=== PATIENT | male | born 1970 | race Caucasian/White ===

== ENCOUNTER 2025-04-05 08:40 | Outpatient (AMB) | payer OTHER, SELFPAY ==
--- NOTE | 2025-04-05 08:49 | MHC.OFFVIS ---
Vital Signs 04/05/25 09:00 Height 5 ft 10 in Weight 228 lb BMI 32.7 BP 115/66 Blood Pressure Location Lt brachial Position Sitting Pulse 86 Pulse Oximetry (%) 96 Oxygen Delivery Method Room Air Intake Visit Reasons: IBD Intake Note: Patient new consult for IBD. Patient cc: soft stool/diarrhea and the are frequent. Assisted Sales Representative Required: No Accompanied by: Self / Same As Patient Allergies shellfish derived (shellfish) Allergy (Intermediate, Verified 04/05/25 08:49) Unknown Medication List - Last Reconciled 04/05/25 by Oneyda Henriquez CNP albuterol sulfate 90 mcg/actuation 2 puffs inhalation Q4H PRN bisacodyl 5 mg PO ONCE glipizide ER mg PO multivitamin 1 tab PO QAM polyethylene glycol 3350 (Miralax) 238 grams PO ONCE sildenafil (Viagra) 50 mg PO DAILY PRN tamsulosin 0.4 mg PO DAILY HPI HPI IBD: Details: Patient is a 54-year-old male with PMH of obesity, hyperlipidemia, essential tremors. Referred by PCP for further evaluation of irritable bowel disease. Milad reports symptoms began around November?December of this year with a progressive change in stool frequency and pattern. Patient describes ongoing small-volume, loose, frequent stools, at times up to 15?20 BMs/day, with periods of intermittent bright red blood per rectum. Also notes persistent discomfort and a sense of rectal pressure, though not severe pain. Symptoms fluctuate, with transient improvement during a several-week course of prednisone (tapered off four days prior to this visit), which resulted in decreased stool frequency and mild improvement in consistency and discomfort. Hematochezia recurred after discontinuing prednisone; patient attributes some bleeding to known internal and external hemorrhoids. Reports a recent history of perirectal abscess with purulent drainage, resolved prior to prednisone. Lower abdominal discomfort is present most days, sometimes attributed to rectal pressure. In addition, patient endorses mild, occasional heartburn with rare regurgitation and no dysphagia. Denies N/V. Weight loss has occurred, but dietary modifications have also been implemented in response to GI and recent hyperglycemia. Reports recent A1C of 9% and at-home glucose >400, believed related to prednisone. Has never been diagnosed with diabetes previously. Remote colonoscopy (2019, benign polyp). Family hx significant for two half-brothers with ulcerative colitis. Comorbid COPD (rare albuterol use). Takes glipizide, tamsulosin, sildenafil prn, and OTC men?s multivitamin. Patient denies: fever/chills, n/v, dysphasia, unintentional wt loss. Social hx: -ETOH use 2?3 times/week, moderate intake. -denies recreational drug use -former smoker, cessation 07/2024 - family hx as below -denies personal hx of CA -tolerated anesthesia in the past without difficulty. PFSH Medical History (Updated 04/05/25 @ 10:55 by Oneyda Henriquez CNP) Perirectal abscess Hemorrhoid Hyperglycemia Colon cancer screening Elevated fecal calprotectin Surgical History (Updated 04/05/25 @ 08:54 by Susan Blanco) Hx of umbilical hernia repair History of surgical procedure on eye proper using laser Family History (Updated 04/05/25 @ 08:54 by Susan Blanco) Brother Colitis Social History (Updated 04/05/25 @ 08:52 by Susan Blanco) Household Members: Family Alcohol intake: current Alcohol intake frequency: a few times a week Patient Tobacco Use Status: Former Tobacco user Use of substances other than those prescribed or required for medical reasons: No Review of Systems Const Reports as per HPI ENT Reports as per HPI Card Reports as per HPI Resp Reports as per HPI GI Reports as per HPI Reports as per HPI Physical Exam Const General: healthy appearing, no acute distress and well developed Nutritional Appearance: average body habitus Orientation/consciousness: patient oriented x3 HEENT Head: Yes normal to inspection, Yes normocephalic and Yes atraumatic Face and sinus: Yes normal facial exam Eyes General: appearance normal, both eyes and all related structures Neck Neck: Yes normal visual inspection Resp Effort & Inspection: normal respiratory effort, able to speak in complete sentences, no tracheal deviation and symmetric chest movement Auscultation: clear to auscultation bilaterally Cardio Jugular venous distension: no JVD GI Inspection: Yes normal to inspection, No distended and Yes obesity Palpation (GI): Soft to palpation, not firm, nontender and No hepatosplenomegaly present Auscultation: normoactive bowel sounds Rectal Exam - Male: Yes deferred Neuro General: patient oriented x3 Gait exam (Neuro): Normal gait present Psych Appearance: grossly normal Mental Status: mental status grossly normal Speech and movement: Normal speech and movement present Affect: normal affect Attitude: cooperative Thought process: Normal thought process present Thought content: Normal thought content present Insight: Good insight present (Psych) Judgement: Good judgement present (Psych) Assessment & Plan Assessment & Plan (1) Elevated fecal calprotectin: Code(s): R19.5 - Other fecal abnormalities Category: Medical Plan: Suspected IBD, likely UC given Chronic loose stools, hematochezia, urgency, steroid response, family hx, and elevated stool-based inflammatory marker. Additional Testing: - Colonoscopy scheduled for 04/17/2025 (with bowel prep Rx). - Concurrent EGD for upper tract involvement. - Repeat CBC, comprehensive metabolic panel, CRP to assess for continued inflammation and anemia. - If colonoscopy delayed, urgent CT enterography for further assessment. Medication Management: - No IBD-specific meds initiated pending endoscopic confirmation and extent of disease. - Imodium permitted as needed, no more than weekly unless otherwise advised. Lifestyle Recommendations: - Follow clear liquid/colonoscopy prep instructions provided. - Avoid NSAIDs/ASA (bleeding risk). - Monitor for increased frequency, severe pain, fever, persistent or worsening bleeding?call GI promptly. Follow-Up: - In-office f/u scheduled for 04/20/2025 at 10am post-colonoscopy for pathology review and treatment planning. (2) Hyperglycemia: Code(s): R73.9 - Hyperglycemia, unspecified Category: Medical Plan: Steroid-Induced Hyperglycemia/Possible New-Onset DM. A1C 9% ( per pt [facility] portal) and FSG >400, temporally associated with prednisone use. - Additional Testing: - Pending labs from PCP. - Monitor trends in blood glucose, repeat A1C in 3 mo if ongoing abnormal values. - Medication Management: - Continue glipizide per PCP. Hold for colonoscopy by protocol. - Blood glucose monitoring at home. - Lifestyle Recommendations: - Maintain low-carb, low-sugar diet as tolerated by GI sx. - Follow-Up: - Coordinate with PCP/endocrinology for glycemic management. - Reinforce to hold DM meds per jacob-procedural instructions. (3) Hemorrhoid: Code(s): K64.9 - Unspecified hemorrhoids Category: Medical Qualifiers: Hemorrhoid type: unspecified Qualified Code(s): K64.9 - Unspecified hemorrhoids Plan: Known hx of internal/external hemorrhoids, possible contributor to BRBPR. Additional Testing: - Clinical assessment during colonoscopy. Medication Management: - None started; conservative management. Lifestyle Recommendations: - Continue avoiding NSAIDs. - Maximize fiber and fluid as tolerated post-evaluation. Follow-Up: - Reassess post-colonoscopy. (4) Perirectal abscess: Code(s): K61.1 - Rectal abscess Category: Medical Plan: Prior event, currently asymptomatic. Additional Testing: - None unless symptoms recur. Medication Management: - None needed at present. Lifestyle Recommendations: - Observe for recurrence. Follow-Up: - PRN if symptoms return. Plan Follow-up as scheduled on 04/20 or sooner as needed Time: I spent a total of 50 minutes on the date of encounter which includes: Preparing to see the patient (reviewed previous documentation, test results and medical history) Performing a medically appropriate exam and/or evaluation Ordering medications, tests, and procedures Documenting clinical information in the health record Orders: Orders Complete Blood Count Auto Diff Today R19.5 - Other fecal abnormalities Comprehensive Met. Panel Today R19.5 - Other fecal abnormalities [facility] SGI Today R19.5 - Other fecal abnormalities C Reactive Protein Today R19.5 - Other fecal abnormalities Referrals GI Procedure Notification R19.5 - Other fecal abnormalities, Z12.11 - Encounter for screening for malignant neoplasm of colon Medications: New bisacodyl Take per colonoscopy instructions 5 mg PO ONCE 4 tabs 0RF polyethylene glycol 3350 (Miralax) per colonoscopy prep instructions 238 grams PO ONCE 238 grams 0RF Coding Level of Care Code New Pt New Pt Level 4 (60237) Patient Type New Diagnoses Elevated fecal calprotectin R19.5 Hyperglycemia R73.9 Hemorrhoids, unspecified hemorrhoid type K64.9 Hemorrhoid type: unspecified Perirectal abscess K61.1
[2025-04-05 09:00] VITALS: BP 115/66; PULSE 86; O2SAT 96; BMI 32.7
--- OUTSIDE RECORDS SUMMARY | 2025-04-05 09:29 | XMS_ITS | Encounter Summary ---
Author Organization [facility] Address [address] [place] [phone] Phone Care Team Providers Care Sewer Maintenance Supervisor Name Role Phone Lisa Garcia MD Primary Care Provider [phone] Encounter Details Date Type Department Care Team (Late Contact Info) Description 07/10/2021 Procedure Pass OR Admitting Dept - Virtual Department [address] [place] [address] Social History Tobacco Use Types Packs/Day Years Used Date Smoking Tobacco: Every Day Cigarettes 1 23.7 Started: 07/09/2001 Smokeless Tobacco: Never Comments:currently down to h jail pack Alcohol Use Standard Drinks/Week Comments Yes 8 (1 standard drink = 0.6 oz pur e alcohol) Sex and Gender Information Value Date Recorded Sex Assigned at Not on file Legal Sex Male 9:37 PM EDT Gender Identity Not on file Sexual Orientation Not on file documented as of this encounter Plan of Treatment Upcoming Encounters Date Type Department Care Team (Late Contact Info) Description 05/30/2025 11:00 AM EST Office Visit [facility] [address] [place] [address] Unknown, Unknown, Ally Elizondo PA-C [address] [id number] [email or web address] documented as of this encounter Visit Diagnoses Not on filedocumented in this encounter Additional Health Concerns Infection Onset Date Last Indicated Resolved Time CoV-Risk 06/27/2024 06/27/2024 07/08/2024 1:22 AM EST documented as of this encounter Care Teams Sewer Maintenance Supervisor Relationship Specialty Start Date End Date Lisa Garcia MD [email or web address] PCP - General Family Medicine 06/24/18 documented as of this encounter Additional Source Comments The information contained in this document represents components of the legal health record. It is not the complete legal health record.[facility]
--- OUTSIDE RECORDS SUMMARY | 2025-04-05 09:29 | XMS_ITS | Encounter Summary ---
Author Organization [facility] Address [address] [place] [address] Phone Care Team Providers Care Vocational Placement Specialist Name Role Phone Lisa Garcia MD Primary Care Provider [phone] Encounter Details Date Type Department Care Team (Late st Contact Info) Description 08/02/2018 Procedure Pass [facility] Endoscopy Admitting Dept Virtual Department [address] [place] [phone] Social History Tobacco Use Types Packs/Day Years Used Date Smoking Tobacco: Former Smokeless Tobacco: Never Alcohol Use Standard Drinks/Week Comments Yes 0 (1 standard drink = 0.6 oz pur e alcohol) 8/wk Sex and Gender Information Value Date Recorded Sex Assigned at Not on file Legal Sex Male 9:37 PM EDT Gender Identity Not on file Sexual Orientation Not on file documented as of this encounter Plan of Treatment Upcoming Encounters Date Type Department Care Team (Late Contact Info) Description 05/30/2025 11:00 AM EST Office Visit [facility] [address] [place] [address] Unknown, Unknown, Ally Elizondo PA-C [address] [place] [phone] [email or web address] documented as of this encounter Visit Diagnoses Not on filedocumented in this encounter Additional Health Concerns Infection Onset Date Last Indicated Resolved Time CoV-Exposed Comment:Recent close contact 06/10/2020 06/10/2020 06/24/2020 1:24 AM EST CoV-Risk 06/27/2024 06/27/2024 07/08/2024 1:22 AM EST documented as of this encounter Care Teams Vocational Placement Specialist Relationship Specialty Start Date End Date Lisa Garcia MD [email or web address] PCP - General Family Medicine 06/24/18 documented as of this encounter Additional Source Comments The information contained in this document represents components of the legal health record. It is not the complete legal health record.[facility]
--- OUTSIDE RECORDS SUMMARY | 2025-04-05 09:29 | XMS_ITS | Encounter Summary ---
Author Organization [facility] Address [address] [place] [address] Phone Care Team Providers Care Certified Art Therapist Name Role Phone Lisa Garcia MD Primary Care Provider [phone] Reason for Referral * - Closed Specialty Diagnoses / Procedures Referred By Contkathryn t Referred To Contact Diagnoses Cough Procedures CT Chest Lisa Garcia MD Phone: tel: fax: [email or web address] Referral ID Status Reason Start Date Expiration Date Visits Re quested Visits Authorized [id number] Closed 06/27/2018 06/27/2019 1 1 Encounter Details Date Type Department Care Team (Late Contact Info) Description 06/15/2018 Ancillary Orders Virtual Department [address] [place] [phone] Lisa Garcia MD [address] [place] [address] [email or web address] Cough Social History Tobacco Use Types Packs/Day Years Used Date Smoking Tobacco: Never Assessed Sex and Gender Information Value Date Recorded Sex Assigned at Not on file Legal Sex Male 9:37 PM EDT Gender Identity Not on file Sexual Orientation Not on file documented as of this encounter Plan of Treatment Upcoming Encounters Date Type Department Care Team (Late Contact Info) Description 05/30/2025 11:00 AM EST Office Visit [facility] [address] [place] [address] Unknown, Unknown, Ally Elizondo PA-C 10 [facility] [address] [place] [address] documented as of this encounter Results * CT CHEST WITH CONTRAST (06/29/2018 8:33 AM EST) Anatomical Region Laterality Modality Chest Computed Tomogra phy 06/29/2018 10:4 9 AM EST Impressions 06/29/2018 10:58 AM EST Minimal bronchial wall thickening suggests bronchitis. Lungs are clear. No bronchiectasis. TOTAL CTDIvol: 30.4 mGy POS - [id number] Narrative 06/29/2018 10:58 AM EST EXAM: CT CHEST WITH CONTRAST CT OF THE CHEST WITH INTRAVENOUS CONTRAST COMPARISON: No prior images available for comparison. Report from previous chest radiograph from May 10, 2018 and June 09, 2018 are available for review. HISTORY: PERSISTENT COUGH TECHNIQUE: CT scan of the chest was performed following the intravenous administration of 100 cc of iohexol Omnipaque 240. Coronal and sagittal reformatted images were generated, together with coronal maximum intensity projection images of the lungs. Automated exposure control utilized. FINDINGS: LUNGS AND LARGE AIRWAYS: Central airways are patent. No bronchiectasis. Very minimal bronchial wall thickening. No lung masses or focal lung consolidations. Two small nodules measuring up to 4 mm along the left major fissure (7:63 and 7:129) likely represent fissural lymph nodes. PLEURA: No pleural effusion. No pneumothorax. MEDIASTINUM AND JANETTE: No adenopathy or masses. Visualized thyroid is unremarkable. Esophagus appear unremarkable. HEART AND VESSELS: Heart is normal in size. No pericardial effusion. Thoracic aorta is normal in caliber. Note is made of common origin of the right brachiocephalic trunk and left common carotid artery. Pulmonary trunk is normal in caliber. No large filling defects within the central pulmonary arteries to suggest embolism. UPPER ABDOMEN: Grossly unremarkable. BONES AND SOFT TISSUES: Soft tissues are grossly unremarkable. No acute or suspicious osseous abnormalities. Procedure Note Paco Luna MD - 06/29/2018 EXAM: CT CHEST WITH CONTRAST CT OF THE CHEST WITH INTRAVENOUS CONTRAST COMPARISON: No prior images available for comparison. Report from previouschest radiograph from May 10, 2018 and June 09, 2018 areavailable for review. HISTORY: PERSISTENT COUGH TECHNIQUE: CT scan of the chest was performed following the intravenousadministration of 100 cc of iohexol Omnipaque 240. Coronal and sagittalreformatted images were generated, together with coronal maximum intensityprojection images of the lungs. Automated exposure control utilized. FINDINGS: LUNGS AND LARGE AIRWAYS: Central airways are patent. No bronchiectasis.Very minimal bronchial wall thickening. No lung masses or focal lungconsolidations. Two small nodules measuring up to 4 mm along the leftmajor fissure (7:63 and 7:129) likely represent fissural lymph nodes. PLEURA: No pleural effusion. No pneumothorax. MEDIASTINUM AND JANETTE: No adenopathy or masses. Visualized thyroid isunremarkable. Esophagus appear unremarkable. HEART AND VESSELS: Heart is normal in size. No pericardial effusion.Thoracic aorta is normal in caliber. Note is made of common origin ofthe right brachiocephalic trunk and left common carotid artery. Pulmonarytrunk is normal in caliber. No large filling defects within the centralpulmonary arteries to suggest embolism. UPPER ABDOMEN: Grossly unremarkable. BONES AND SOFT TISSUES: Soft tissues are grossly unremarkable. No acuteor suspicious osseous abnormalities. IMPRESSION: Minimal bronchial wall thickening suggests bronchitis. Lungs are clear. Nobronchiectasis. TOTAL CTDIvol: 30.4 mGy POS - [id number] Lisa Garcia MD [facility] [place] Final Result documented in this encounter Visit Diagnoses Diagnosis Cough Cough documented in this encounter Additional Health Concerns Infection Onset Date Last Indicated Resolved Time CoV-Exposed Comment:Recent close contact 06/10/2020 06/10/2020 06/24/2020 1:24 AM EST CoV-Risk 06/27/2024 06/27/2024 07/08/2024 1:22 AM EST documented as of this encounter Care Teams Certified Art Therapist Relationship Specialty Start Date End Date Lisa Garcia MD [email or web address] PCP - General Family Medicine 06/24/18 documented as of this encounter Additional Source Comments The information contained in this document represents components of the legal health record. It is not the complete legal health record.[facility]
--- OUTSIDE RECORDS SUMMARY | 2025-04-05 09:29 | XMS_ITS | Encounter Summary ---
Author Organization [facility] Address [address] [address] Phone Care Team Providers Care Key Filer Name Role Phone Lisa Garcia MD Primary Care Provider + [phone] Reason for Referral * MRI/CAT Scan - Closed Specialty Diagnoses / Procedures Referred By Contac t Referred To Contact Radiology Diagnoses Former smoker Procedures CT Chest Lung Cancer Screening Initial Or Annual Natty Gil MD Phone: tel: fax: [email or web address] Referral ID Status Reason Start Date Expiration Date Visits Re quested Visits Authorized [id number] Closed 02/25/2024 05/25/2024 1 1 Encounter Details Date Type Department Care Team (Latest Contact Info) Description 10/14/2023 Transcribe Orders Virtual Department 30 [place] [address] Natty Gil MD [address] [place] [phone] [email or web address] Former smoker (Primary Dx) Social History Tobacco Use Types Packs/Day Years Used Date Smoking Tobacco: Every Day Cigarettes 1 23.7 Started: 07/09/2001 Smokeless Tobacco: Never Comments:currently down to h blanca pack Alcohol Use Standard Drinks/Week Comments Yes 8 (1 standard drink = 0.6 oz pur e alcohol) Education Answer Date Recorded Are you interested in more education? Not on alyssia e 10/16/2022 Are you concerned about learning? Not on file 10/16/2022 No 10/16/2022 No 10/16/2022 Digital Access Answer Date Recorded No 11/14/2022 No 11/14/2022 Reliable internet access at home? Not on file 11/14/2022 Device with a working camera? Not on file Sex and Gender Information Value Date Recorded Sex Assigned at Not on file Legal Sex Male 9:37 PM EDT Gender Identity Not on file Sexual Orientation Not on file documented as of this encounter Plan of Treatment Upcoming Encounters Date Type Department Care Team (Late st Contact Info) Description 05/30/2025 11:00 AM EST Office Visit [facility] 10 [place] [address] Unknown, Unknown, Ally Elizondo PA-C [address] [address] documented as of this encounter Results * CT CHEST LUNG CANCER SCREENING INITIAL (02/29/2024 2:25 PM EDT) Anatomical Region Laterality Modality Chest Computed Tomogra phy 03/06/2024 8:3 8 AM EDT Impressions 03/06/2024 8:44 AM EDT Lung-RADS Category: 2. Multiple pulmonary nodules. The category-determining solid nodule has a very low likelihood of becoming a clinically active cancer, due to size and/or lack of growth. RECOMMENDATIONS: Continue Lung-RADS Annual Lung Cancer Screening Chest CT in 12-14 months (scheduling range) if patient meets eligibility criteria. To order, please type CT CHEST SCREENING (CT.TH.CHESTSCRS) and select ANNUAL for patient program status. {REC:CTChestScreeningFollowup} Explanation of the Lung-RADS categories can be found at: [email or web address] Narrative 03/06/2024 8:[address] CHEST LUNG CANCER SCREENING INITIAL Referring clinician's provided indication for this examination in Epic: Lung Cancer Screening - FORMER smoker, quit in past 15 yrs (20+ pk-yrs, age 50-80) - ICD-10 Z87.891; ex smoker TECHNIQUE: Low dose multidetector CT of the chest was performed without intravenous contrast using tailored dose modulation techniques. COMPARISON: CT CHEST WITH CONTRAST FINDINGS: Devices/Tubes/Lines: None. Lungs: No consolidation. Airways are clear. Small pulmonary nodules measuring up to 4 mm in size are unchanged, for instance perifissural left upper lobe (5:114). No new or enlarging nodules. Pleura: No pleural effusion or pneumothorax. Mediastinum: No thyroid nodules. Heart and pericardium are normal. Mild amount of coronary calcifications. Lymph Nodes: No enlarged supraclavicular, axillary, mediastinal, or hilar lymph nodes. Upper Abdomen: Mild hepatic steatosis. Absence of intravenous contrast limits sensitivity for detecting solid organ findings. Chest Wall: No chest wall mass. Bones: Degenerative changes of the spine. No suspicious lytic or blastic lesions. Procedure Note Omega Peace MD - 03/06/2024 CT CHEST LUNG CANCER SCREENING INITIAL Referring clinician's provided indication for this examination in [facility]:Lung Cancer Screening - FORMER smoker, quit in past 15 yrs (20+ pk-yrs,age 50-80) - ICD-10 Z87.891; ex smoker TECHNIQUE: Low dose multidetector CT of the chest was performed withoutintravenous contrast using tailored dose modulation techniques. COMPARISON: CT CHEST WITH CONTRAST FINDINGS: Devices/Tubes/Lines: None. Lungs: No consolidation. Airways are clear. Small pulmonary nodulesmeasuring up to 4 mm in size are unchanged, for instance perifissural leftupper lobe (5:114). No new or enlarging nodules. Pleura: No pleural effusion or pneumothorax. Mediastinum: No thyroid nodules. Heart and pericardium are normal. Mildamount of coronary calcifications. Lymph Nodes: No enlarged supraclavicular, axillary, mediastinal, or hilarlymph nodes. Upper Abdomen: Mild hepatic steatosis. Absence of intravenous contrastlimits sensitivity for detecting solid organ findings. Chest Wall: No chest wall mass. Bones: Degenerative changes of the spine. No suspicious lytic or blasticlesions. IMPRESSION: Lung-RADS Category: 2. Multiple pulmonary nodules. Thecategory-determining solid nodule has a very low likelihood of becoming aclinically active cancer, due to size and/or lack of growth. RECOMMENDATIONS: Continue Lung-RADS Annual Lung Cancer Screening Chest CT in 12-14 months(scheduling range) if patient meets eligibility criteria. To order, please type CT CHEST SCREENING (CT.TH.CHESTSCRS) and selectANNUAL for patient program status. {REC:CTChestScreeningFollowup} Explanation of the Lung-RADS categories can be found at:[email or web address] Natty Gil MD IMG CT CHEST Final Re sult documented in this encounter Visit Diagnoses Diagnosis Former smoker- Primary Personal history of tobacco use, presenting hazards to health Former smoker Personal history of tobacco use, presenting hazards to health documented in this encounter Additional Health Concerns Infection Onset Date Last Indicated Resolved Time CoV-Risk 06/27/2024 06/27/2024 07/08/2024 1:22 AM EST documented as of this encounter Care Teams Key Filer Relationship Specialty Start Date End Date Lisa Garcia MD [email or web address] PCP - General Family Medicine 06/24/18 documented as of this encounter Additional Source Comments The information contained in this document represents components of the legal health record. It is not the complete legal health record.[facility]
--- OUTSIDE RECORDS SUMMARY | 2025-04-05 09:29 | XMS_ITS | Encounter Summary ---
Author Organization [facility] Address [address] [facility] [address] [place] [address] Phone Care Team Providers Care Fence Gate Assembler Name Role Phone Lisa Garcia MD Primary Care Provider [phone] Encounter Details Date Type Department Care Team (Late Contact Info) Description 10/14/2023 Procedure Pass [facility], Ct Scan - [address] [address] Social History Tobacco Use Types Packs/Day Years Used Date Smoking Tobacco: Every Day Cigarettes 1 23.7 Started: 07/09/2001 Smokeless Tobacco: Never Comments:currently down to h [facility] pack Alcohol Use Standard Drinks/Week Comments Yes [...] Description 05/30/2025 11:00 AM EST Office Visit [facility] Gastroenterology Clinic 10 [place] [address] Unknown, Unknown, Ally Elizondo PA-C [address] [place] [phone] documented as of this encounter Visit Diagnoses Not on filedocumented in this encounter Additional Health Concerns Infection Onset Date Last Indicated Resolved Time CoV-Risk 06/27/2024 06/27/2024 07/08/2024 1:22 AM EST documented as of this encounter Care Teams Fence Gate Assembler Relationship Specialty Start Date End Date Lisa Garcia MD PCP - General Family Medicine 06/24/18 documented as of this encounter Additional Source Comments The information contained in this document represents components of the legal health record. It is not the complete legal health record.[facility]
--- OUTSIDE RECORDS SUMMARY | 2025-04-05 09:29 | XMS_ITS | Clinical Summary ---
Author Organization [facility] Address [address] [address] Phone Care Team Providers Care Braider Operator Name Role Phone Lisa Garcia MD Primary Care Provider Allergies Active Allergy Reactions Criticality Noted Date Comments Shellfish Containing Products 2021 Shrimp 06/27/2024 Medications budesonide-form oterol (SYMBICORT) 80-4.5 mcg/actuation inhaler Inhale 2 puffs into the lungs 2 (two) times a day. Active albuterol 90 mcg/actuation inhaler Inhale 2 puffs into the lungs every 6 (six) hours as needed for wheezing. Active tamsulosin (FLOMAX) 0.4 mg Cap Take by mouth daily. Active fyliuzkk-nlj-xa rrous gluconate (CENTRUM WITH IRON) 9 mg iron/15 mL Liqd Take 15 mL by mouth daily. Active acetaminophen (TYLENOL) 325 mg tablet Take 2 tablets (650 mg total) by mouth every 4 (four) hours as needed for mild pain. 0 07/10/2021 Active ibuprofen (ADVIL,MOTRIN) 200 MG tablet Take 2 tablets (400 mg total) by mouth every 6 (six) hours as needed for pain (specific location in comments). 07/10/2021 Active Active Problems Problem Noted Date Diagnosed Date S/P laparoscopic hernia repair 07/23/2021 Encounters Date Type Department Care Team Description 03/23/2025 Telephone [facility] Gastroenterology Clinic [address] [place], [place] [id number] Domenica Stringer Appointment from Last 3 Months Social History Tobacco Use Types Packs/Day Years [...] on file Sexual Orientation Not on file Last Filed Vital Signs Vital Sign Reading Time Taken Comments Blood Pressure 138/81 06/27/2024 11:30 AM EST Pulse 104 06/27/2024 11:30 AM EST Temperature 37.3 C (99.1 F) 06/27/2024 11:30 AM EST Respiratory Rate 18 06/27/2024 11:30 AM EST Oxygen Saturation 98% 06/27/2024 11:30 AM EST Inhaled Oxygen Concentration - - Weight 108.9 kg (240 lb) 06/27/2024 11:30 AM EST Height 177.8 cm (5' 10 ) 06/27/2024 11:30 AM EST Body Mass Index 34.44 06/27/2024 11:30 AM EST Plan of Treatment Upcoming Encounters Date Type Department Care Team (Late st Contact Info) Description 05/30/2025 11:00 AM EST Office Visit [facility] Gastroenterology Clinic [address] [place] [address] Unknown, Unknown, Ally Elizondo PA-C [address] [address] [email or web address] Health Maintenance Due Date Last Done Comments LIPID PANEL 1968 DEPRESSION SCREENING 1980 HEPATITIS C SCREENING 1986 HIV ONE-TIME SCREENING (18-6 5 YEARS) 1986 PNEUMOCOCCAL VACCINES (50+ years) (1 of 2 - PCV) 1987 SCREENING FOR DIABETES 2003 COLOGUARD 2013 FIT TEST 2013 FOBT 2013 SIGMOIDOSCOPY 2013 VIRTUAL COLONOSCOPY 2013 RSV VACCINE (1 - Risk 50-74 years 1-dose series) 2018 ZOSTER VACCINES (1 of 2) 2018 Adult Td,Tdap Booster 06/26/2019 06/26/2009 INFLUENZA VACCINE (#1) 2025 04/20/2018 COVID-19 VACCINE (3 - 2024-2 6 season) 2025 06/08/2021, 09/04/2020 LUNG CANCER SCREENING (LDCT Only) 02/28/2025 02/29/2024, 06/29/2018 SMOKING Hx and SMOKELESS TOBACCO SCREENING 06/27/2025 06/27/2024 COLONOSCOPY 08/02/2028 08/02/2018 COLORECTAL CANCER SCREENING 08/02/2028 HEPATITIS A VACCINES Aged Out No long er eligible based on patient's age to complete this topic HIB VACCINES Aged Out No longer eligi ble based on patient's age to complete this topic MENINGOCOCCAL VACCINES (ACWY) Aged Out No longer eligible based on patient's age to complete this topic MENINGOCOCCAL VACCINES (B) Aged Out N o longer eligible based on patient's age to complete this topic Medical Devices Implanted Type Area [employer] Worker Device Identifier Shelf Expiration Date Model / Serial / Lot Mesh Graft 4.5in Ventralight St Polypropylene Hernia Monofil Hydrogel Echo Ps Positioning System Repair [employer] - [id number] Implanted:Qty: 1 on 07/10/2021 by Shanita Quevedo MD at [facility] N/A: Abdomen DAVOL 11/15/2022 [id number] / / [id number] Procedures Procedure Name Priority Date/Time Associated Diagnosis Comments CT CHEST LUNG CANCER SCREENING INITIAL Routine 02/29/2024 2:25 PM EDT Former smoker ENDOSCOPY, COLON 08/02/2018 8:58 AM EST from Last 3 Months or Most Recently Relevant to Health Maintenance Results * CT CHEST LUNG CANCER SCREENING INITIAL (02/29/2024 2:25 PM EDT) Anatomical Region Laterality Modality Chest Computed Tomogra phy 03/06/2024 8:38 AM EDT Impressions 03/06/2024 8:44 AM EDT [...] clinician's provided indication for this examination in [facility]: Lung Cancer Screening - FORMER smoker, quit [...] clinician's provided indication for this examination in [facility]:Lung Cancer Screening - FORMER smoker, quit [...] the Lung-RADS categories can be found at:[email or web address] us Natty Gil MD IMG CT CHEST Final Re sult * ENDOSCOPY, COLON (08/02/2018 8:58 AM EST) Narrative Transcriptions Kee Arambula MD - 08/02/2018 8:58 AM EST Patient Name: Milad Pasquale Attending MD:: KEE ARAMBULA MD Procedure Date: 08/02/2018 8:58 AM Date of : 1970 Age: 48 Admit Type: Outpatient Gender: Male Room: [place] [address] Referring MD: Lisa Garcia Exam Type: Colonoscopy Indications: Screening for colorectal malignant neoplasm, This isthe patient's first colonoscopy Medications: Monitored Anesthesia Care Procedure: Informed consent was obtained from the patient after discussion of the indications, limitations,alternatives, benefits, and risks of the procedure. Risksspecifically discussed include but are not limited to medication reactions, missed lesions, bleeding, perforation, orthe need for emergent surgery. Throughout the procedure, the patient's blood pressure, pulse, end-tidal CO2, and oxygen saturations were monitored continuously. The Olympus adult variable colonoscope [id number] #6 was introduced through the anus and advanced to theterminal ileum. The colonoscopy was performed withoutdifficulty. The patient tolerated the procedure well. The qualityof the bowel preparation was good. Complications: No immediate complications. Estimated blood loss:None. Findings: The perianal and digital rectal examinations werenormal. Two sessile polyps were found in the sigmoid colon. The polyps were 4 mm in size. These polyps were removedwith a cold snare. Resection and retrieval were complete. Multiple small-mouthed diverticula were found in the sigmoid colon, descending colon and ascending colon. The rectum, recto-sigmoid colon, splenic flexure, transverse colon, hepatic flexure, ascending colon,cecum, appendiceal orifice, ileocecal valve, ileum, rectum (on retroflexion) and ascending colon (on retroflexion) appeared normal. Impression: - Two 4 mm polyps in the sigmoid colon, removed with a cold snare. Resected and retrieved. - Diverticulosis in the sigmoid colon, in thedescending colon and in the ascending colon. - The rectum, recto-sigmoid colon, splenic flexure, transverse colon, hepatic flexure, ascending colon,cecum, appendiceal orifice, ileocecal valve and terminal ileum are normal. Recommendation: - Discharge patient to home. - High fiber diet. - Continue present medications. - Await pathology results. - Repeat colonoscopy 5 years if patholopgy showsadenama, 10 years if hyperplastic. for surveillance based on pathology results. - You have diverticulosis so please eat a high fiberdiet. KEE ARAMBULA MD 08/02/2018 9:33:32 AM This report has been signed electronically. Number of Addenda: 0 Note Initiated On: 08/02/2018 8:58 AM Procedure Code(s): --- Professional --- 30284, Colonoscopy, flexible; with removal of tumor(s), polyp(s), or other lesion(s) by snare technique --- Technical --- 31963, Colonoscopy, flexible; with removal of tumor(s), polyp(s), or other lesion(s) by snare technique Diagnosis Code(s): --- Professional --- Z12.11, Encounter for screening for malignant neoplasm of colon D12.5, Benign neoplasm of sigmoid colon K57.30, Diverticulosis of large intestine without perforation orabscess without bleeding --- Technical --- Z12.11, Encounter for screening for malignant neoplasm of colon D12.5, Benign neoplasm of sigmoid colon K57.30, Diverticulosis of large intestine without perforation orabscess without bleeding CPT copyright 2016 [employer]. All rights reserved. The codes documented in this report are preliminary and upon bridge manager reviewmay be revised to meet current compliance requirements. [address] [place] [id number] Lisa Garcia MD GI PROCEDURE ORDERABLES Mavis l Result from Last 3 Months or Most Recently Relevant to Health Maintenance Insurance [facility] [facility] [place] [facility] [place] [facility] [place] [facility] [place] [facility] [place] [address] [address] DIRECT Advance Directives For more information, please contact: [phone] (9AM - 5PM Katherine/[facility], Wednesday-Wednesday) * Full Code (Latest Code Status on File) Date Activated Date Inactivated Comments 07/10/2021 6:19 AM Question Answer Comments Code Status Confirmed With: Patient Care Teams Braider Operator Relationship Specialty Start Date End Date Lisa Garcia MD [email or web address] PCP - General Family Medicine 06/24/18 Additional Source Comments The information contained in this document represents components of the legal health record. It is not the complete legal health record.[facility]
--- OUTSIDE RECORDS SUMMARY | 2025-04-05 09:29 | XMS_ITS | Clinical Summary ---
Author Organization [address] [place] [address] Address [address] [place] [address] Phone Care Team Providers Care Sqe Name Role Phone Napoleon Dave HARDIK Primary Care Provider Encounters Date Type Department Care Team Description 03/06/2025 Telephone Gastroenterology [facility] [address] [phone] Roberto Curran MD from Last 3 Months Social History Tobacco Use Types Packs/Day Years Used Date Smoking Tobacco: Never Assessed Sex and Gender Information Value Date Recorded Sex Assigned at Not on file Legal Sex Male 3:24 PM EDT Gender Identity Not on file Sexual Orientation Not on file Plan of Treatment Upcoming Encounters Date Type Department Care Team ([facility] Contact Info) Description 08/01/2025 9:50 AM EST Consult Gastroenterology [facility] [address] [phone] Tatiana Pereira PA [address] [phone] Health Maintenance Due Date Last Done Comments Colorectal Cancer Screening: Colonoscopy 1970 DTaP,Tdap,and Td Vaccines (1 - Tdap) 1987 Hepatitis B Vaccines (1 of 3 - 19+ 3-dose series) 1987 Pneumococcal Vaccine: 50+ Ye ars (1 of 1 - PCV) 2018 Zoster Vaccines (1 of 2) 2018 Depression Screening 06/21/2024 COVID-19 Vaccine (1 - 2023-2 5 season) 2025 Influenza Vaccine (#1) 2025 Cholesterol Screening (Lipid Panel) 03/06/2025 HIV Screening 03/06/2025 Hepatitis C Screening 03/06/2025 Social Influencers of Health Screening 03/06/2025 RSV Immunization Adult Patie nts (1 - 1-dose 75+ series) 2043 HIB Vaccines Aged Out No longer eligi ble based on patient's age to complete this topic HPV Vaccines Aged Out No longer eligi ble based on patient's age to complete this topic Hepatitis A Vaccines Aged Out No long er eligible based on patient's age to complete this topic IPV Vaccines Aged Out No longer eligi ble based on patient's age to complete this topic MMR Vaccines Aged Out No longer eligi ble based on patient's age to complete this topic Meningococcal ACWY Vaccine Aged Out N o longer eligible based on patient's age to complete this topic Meningococcal B Vaccine Aged Out No l onger eligible based on patient's age to complete this topic RSV Immunization Patients Un rafael 20 months Aged Out No longer eligible b ased on patient's age to complete this topic Varicella Vaccines Aged Out No longer eligible based on patient's age to complete this topic Insurance [place] [address] [address] PUBLIC PLANS Care Teams Sqe Relationship Specialty Start Date End Date Napoleon Dave FNP [address] [phone] PCP - General Family Medicine 03/06/25
--- OUTSIDE RECORDS SUMMARY | 2025-04-05 09:29 | XMS_ITS | Encounter Summary ---
Author Organization [facility] Address [address] [place] [phone] Phone Care Team Providers Care Sr Solutions Consultant Name Role Phone Lisa Garcia MD Primary Care Provider + [phone] Encounter Details Date Type Department Care Team (Latest Contact Info) Description 06/10/2020 Transcribe Orders Virtual Department [address] [place] [address] Lisa Garcia MD [address] [place] [address] [email or web address] Exposure to SARS-associated coronavirus (Primary Dx) Social History Tobacco Use Types [...] Description 05/30/2025 11:00 AM EST Office Visit [facility] Gastroenterology Clinic 10 [place] [address] Unknown, Unknown, Ally Elizondo PA-C [address] [phone] documented as of this encounter Results * COVID-19 PCR Order (06/10/2020 2:42 PM EST) COVID Testing Status Specimen received in analyzing lab. [facility] Symptomatic? NO [facility] Other 06/10/2020 2:42 PM EST 06/10/2020 5:47 PM EST Lisa Garcia MD BODY FLUIDS AND STOOLS ORDER CYNTHIA Final Result Performing Organization Address City/State/[facility] Co de Phone Number [facility] [address] [place] [address] [facility] [address] [place] [phone] documented in this encounter Visit Diagnoses Diagnosis Exposure to SARS-associated coronavirus- Primary documented in this encounter Additional Health Concerns Infection Onset Date Last Indicated Resolved Time CoV-Exposed Comment:Recent close contact 06/10/2020 06/10/2020 06/24/2020 1:24 AM EST CoV-Risk 06/27/2024 06/27/2024 07/08/2024 1:22 AM EST documented as of this encounter Care Teams Sr Solutions Consultant Relationship Specialty Start Date End Date Lisa Garcia MD [email or web address] PCP - General Family Medicine 06/24/18 documented as of this encounter Additional Source Comments The information contained in this document represents components of the legal health record. It is not the complete legal health record.[facility]
--- OUTSIDE RECORDS SUMMARY | 2025-04-05 09:29 | XMS_ITS | Encounter Summary ---
Author Organization [facility] Address [address] [facility] [address] [place] [address] Phone Care Team Providers Care Physician Practice Coordinator Name Role Phone Lisa Garcia MD Primary Care Provider + [phone] Reason for Visit * Reason Onset Date Comments Appointment 03/23/2025 Encounter Details Date Type Department Care Team (Late st Contact Info) Description 03/23/2025 Telephone [facility] G[facility]enterology Clinic 10 [place], [place] [phone] Domenica Stringer 10 [place] [address] [email or web address] Appointment Social History Tobacco Use Types Packs/Day Years Used Date Smoking Tobacco: Every Day Cigarettes 1 23.7 Started: 07/09/2001 Smokeless Tobacco: Never Comments:currently down to h custodial pack Alcohol Use Standard Drinks/Week Comments Yes [...] on file documented as of this encounter Progress Notes * Brooke Black MA - 04/04/2025 3:19 PM EDT Ryan called again to try and get pt seen sooner. I advised the pt call to check for cancellations. He said he was waiting back from Jaimee * Erika Ward - 03/26/2025 12:34 PM EDT Called patient to move appointment up, patient is currently on a cruise and unable to come in this week. * Domenica Stringer - 03/23/2025 11:01 AM EDT Ryan from [facility] calling on behalf of Dr. Gil, He states this pt was supposed to be a STAT referral and was r/s or canceled by us twice in February. Pt is currently scheduled in June. This is unacceptable and this patient needs to be scheduled BY the week of April 03. documented in this encounter Plan of Treatment Upcoming Encounters Date Type Department Care Team (Late st Contact Info) Description 05/30/2025 11:00 AM EST Office Visit [facility] G[facility]enterology Clinic [address] [place] [address] Unknown, Unknown, Ally Elizondo PA-C [address] [place] [address] documented as of this encounter Visit Diagnoses Not on filedocumented in this encounter Care Teams Physician Practice Coordinator Relationship Specialty Start Date End Date Lisa Garcia MD PCP - General Family Medicine 06/24/18 documented as of this encounter Additional Source Comments The information contained in this document represents components of the legal health record. It is not the complete legal health record.[facility]
== END 2025-04-05 09:45 | disposition home or self-care (01) ==
LOC: HO.HGI 08:40
PROVIDERS: PCP Registered Nurse; Visit Provider Nurse Practitioner Family
DX: R19.5 Other fecal abnormalities (principal); R73.9 Hyperglycemia, unspecified; K64.9 Unspecified hemorrhoids; K61.1 Rectal abscess
CPT/HCPCS: 99204

== ENCOUNTER 2025-04-05 08:40 | Outpatient (REF) | payer OTHER, SELFPAY ==
[2025-04-05 10:09] LABS: MANUAL DIFF FLAG NO
[2025-04-05 10:35] LABS: Hematocrit 42.6 % (42.0-52.0); Hemoglobin 14.3 g/dl (14.0-18.0); Imm Gran Abs Auto 0.05 X10*3/uL (0.00-0.03); Imm Gran Pct Auto 0.4 % (0.0-0.4); Lymphocytes Absolute Auto 1.7 X10*3/uL (1.2-4.9); Mean Corpuscular HGB Conc 33.6 g/dl (31.0-36.0); Mean Corpuscular Hemoglobin 29.2 pg (27.0-33.0); Mean Corpuscular Volume 87.1 fL (80.0-98.0); NRBC Abs Auto 0.000 X10*3/uL (0.0-0.012); NRBC Pct Auto 0.0 /100WBC (0.0-0.2); Platelet Count 291 X10*3/uL (160-400); Red Blood Count 4.89 X10*6/uL (4.60-5.80); White Blood Count 11.4 X10*3/uL (4.8-10.8)
[2025-04-05 11:44] LABS: Alanine Aminotransferase 31 U/L (0-40); Albumin Level 4.3 g/dL (3.5-5.0); Alkaline Phosphatase 99 U/L (39-117); Anion Gap 12 (12-20); Aspartate Amino Transferase 19 U/L (5-37); Blood Urea Nitrogen 16 mg/dL (9-16); Calcium 9.5 mg/dL (8.4-10.2); Carbon Dioxide 28 mmol/L (22-29); Chloride 103 mmol/L (96-108); Estimated Glomerular Filt Rate > 60; Potassium 4.4 mmol/L (3.3-5.1); Sodium 139 mmol/L (135-145); Total Protein 7.4 g/dL (6.5-8.0)
== END 2025-04-05 08:41 | disposition home or self-care (01) ==
LOC: HO.LAB 08:40
PROVIDERS: PCP Registered Nurse; Visit Provider Nurse Practitioner Family
DX: R19.5 Other fecal abnormalities (principal); R73.9 Hyperglycemia, unspecified; K64.9 Unspecified hemorrhoids; K61.1 Rectal abscess; Z12.11 Encounter for screening for malignant neoplasm of colon; Z79.84 Long term (current) use of oral hypoglycemic drugs
CPT/HCPCS: 36415; 80053; 81479; 82397; 83520; 85025; 86140; 88346; 88350; 99202

== ENCOUNTER 2025-04-17 08:48 | Day surgery (SDC) | payer OTHER, SELFPAY ==
--- OUTSIDE RECORDS SUMMARY | 2025-04-05 19:16 | XMS_ITS | Encounter Summary ---
Author Organization [facility] Address [address] [facility] [address] [place] [address] Phone Care Team Providers Care Drywall Worker Name Role Phone Lisa Garcia MD Primary Care Provider + [phone] Reason for Visit * Reason Onset Date Comments Appointment 03/23/2025 Encounter Details Date Type Department Care Team (Late st Contact Info) Description 03/23/2025 Telephone [facility] G[facility]enterology [facility] 10 [place], [place] [phone] Domenica Stringer 10 [place] [address] [email or web address] Appointment Social History Tobacco Use Types Packs/Day Years Used Date Smoking Tobacco: Every Day Cigarettes 1 23.7 Started: 07/09/2001 Smokeless Tobacco: Never Comments:currently down to h half-way pack Alcohol Use Standard Drinks/Week Comments Yes [...] - 03/23/2025 11:01 AM EDT Ryan [place] [facility] [place] on behalf of Dr. Gil, He [...] Description 05/30/2025 11:00 AM EST Office Visit [facility] [address] [place] [address] Unknown, Unknown, Ally Elizondo PA-C [address] [place] [address] documented as of this encounter Visit Diagnoses Not on filedocumented in this encounter Care Teams Drywall Worker Relationship Specialty Start Date End Date Lisa Garcia MD PCP - General Family Medicine 06/24/18 documented as of this encounter Additional Source Comments The information contained in this document represents components of the legal health record. It is not the complete legal health record.[facility]
--- OUTSIDE RECORDS SUMMARY | 2025-04-05 19:16 | XMS_ITS | Clinical Summary ---
Author Organization [address] [place] [address] Address 175 [place] [address] Phone Care Team Providers Care Furniture Fabricator Name Role Phone Napoleon Dave HARDIK Primary Care Provider Encounters Date Type Department Care Team Description 03/06/2025 Telephone Gastroenterology [facility] [address] [phone] Roberto Curran MD from Last 3 Months Social History Tobacco Use Types Packs/Day Years Used Date Smoking Tobacco: Never Assessed Sex and Gender Information Value Date Recorded Sex Assigned at Not on file Legal Sex Male 3:24 PM EDT Gender Identity Not on file Sexual Orientation Not on file Plan of Treatment Upcoming Encounters Date Type Department Care Team ([facility] Contact Info) Description 08/01/2025 9:50 AM EST Consult Gastroenterology [facility] [address] [phone] Tatiana Pereira PA [address] [phone] Health Maintenance Due Date Last Done Comments [...] patient's age to complete this topic [place] [address] PUBLIC PLANS Care Teams Furniture Fabricator Relationship Specialty Start Date End Date Napoleon Dave FNP Joe Rodriguez [address] [phone] PCP - General Family Medicine 03/06/25
--- OUTSIDE RECORDS SUMMARY | 2025-04-05 19:16 | XMS_ITS | Encounter Summary ---
Author Organization [facility] Address [address] [place] [address] Phone Care Team Providers Care Oracle Applications Developer Name Role Phone Lisa Garcia MD Primary Care Provider [phone] Encounter Details Date Type Department Care Team (Late st Contact Info) Description 08/02/2018 Procedure Pass [facility] Endoscopy Admitting Dept Virtual Department [address] [place] [address] Social History Tobacco Use Types Packs/Day Years [...] Description 05/30/2025 11:00 AM EST Office Visit [facility] Gastroenterology Clinic [address] [place] [address] Unknown, Unknown, Ally Elizondo PA-C [address] [place] [address] [email or web address] documented as of this encounter Visit Diagnoses Not on filedocumented in this encounter Additional Health Concerns Infection Onset Date Last Indicated Resolved Time CoV-Exposed Comment:Recent close contact 06/10/2020 06/10/2020 06/24/2020 1:24 AM EST CoV-Risk 06/27/2024 06/27/2024 07/08/2024 1:22 AM EST documented as of this encounter Care Teams Oracle Applications Developer Relationship Specialty Start Date End Date Lisa Garcia MD [email or web address] PCP - General Family Medicine 06/24/18 documented as of this encounter Additional Source Comments The information contained in this document represents components of the legal health record. It is not the complete legal health record.[facility]
--- OUTSIDE RECORDS SUMMARY | 2025-04-05 19:16 | XMS_ITS | Encounter Summary ---
Author Organization [facility] Address [address] [facility] [address] [place] [address] Phone Care Team Providers Care Can Coverer Name Role Phone Lisa Garcia MD Primary Care Provider [phone] Encounter Details Date Type Department Care Team (Late Contact Info) Description 10/14/2023 Procedure Pass [facility], Ct Scan - [address] [address] Social History Tobacco Use Types Packs/Day Years Used Date Smoking Tobacco: Every Day Cigarettes 1 23.7 Started: 07/09/2001 Smokeless Tobacco: Never Comments:currently down to h detention pack Alcohol Use Standard Drinks/Week Comments Yes [...] Description 05/30/2025 11:00 AM EST Office Visit [facility] Gastroenterology Clinic 10 [place] [address] Unknown, Unknown, Ally Elizondo PA-C [address] [place] [address] documented as of this encounter Visit Diagnoses Not on filedocumented in this encounter Additional Health Concerns Infection Onset Date Last Indicated Resolved Time CoV-Risk 06/27/2024 06/27/2024 07/08/2024 1:22 AM EST documented as of this encounter Care Teams Can Coverer Relationship Specialty Start Date End Date Lisa Garcia MD PCP - General Family Medicine 06/24/18 documented as of this encounter Additional Source Comments The information contained in this document represents components of the legal health record. It is not the complete legal health record.[facility]
--- OUTSIDE RECORDS SUMMARY | 2025-04-05 19:16 | XMS_ITS | Encounter Summary ---
Author Organization [facility] Address [address] [address] Phone Care Team Providers Care Zipper Measurer Name Role Phone Lisa Garcia MD Primary Care Provider + [phone] Reason for Referral * MRI/CAT Scan - Closed Specialty Diagnoses / Procedures Referred By Contac t Referred To Contact Radiology Diagnoses Former smoker Procedures CT Chest Lung Cancer Screening Initial Or Annual Natty Gil MD Phone: tel: fax: [email or web address]:[email or web address] Referral ID Status Reason Start Date Expiration Date Visits Re quested Visits Authorized [id number] Closed 02/25/2024 05/25/2024 1 1 Encounter Details Date Type Department Care Team (Latest Contact Info) Description 10/14/2023 Transcribe Orders Virtual Department [address] [place] [address] Natty Gil MD [address] [place] [address] [email or web address] Former smoker (Primary Dx) Social History [...] Description 05/30/2025 11:00 AM EST Office Visit [facility] Gastroenterology Clinic 10 [place] [address] Unknown, Unknown, Ally Elizondo PA-C [address] [address] [email or web address] documented as of this encounter Results * [...] clinician's provided indication for this examination in [facility]:Lung Cancer Screening - FORMER smoker, quit [...] Lung-RADS categories can be found at:[email or web address] Natty Gli MD IMG CT CHEST Final Re sult [...] documented as of this encounter Care Teams Zipper Measurer Relationship Specialty Start Date End Date Lisa Garcia MD [email or web address] PCP - General Family Medicine 06/24/18 documented as of this encounter Additional Source Comments The information contained in this document represents components of the legal health record. It is not the complete legal health record.[facility]
--- OUTSIDE RECORDS SUMMARY | 2025-04-05 19:16 | XMS_ITS | Encounter Summary ---
Author Organization [facility] Address [address] [place] [address] Phone Care Team Providers Care Director Staffing Name Role Phone Lisa Garcia MD Primary Care Provider + [phone] Encounter Details Date Type Department Care Team (Latest Contact Info) Description 06/10/2020 Transcribe Orders Virtual Department 30 [place] [address] Lisa Garcia MD [address] [place] [address] [email or web address] Exposure to SARS-associated coronavirus (Primary Dx) [...] AM EST Office Visit [facility] Gastroenterology Clinic 10 [place] [address] Unknown, Unknown, Ally Elizondo PA-C [address] [phone] documented as of this encounter Results * COVID-19 PCR Order (06/10/2020 2:42 PM EST) COVID Testing Status Specimen received in analyzing lab. [facility] Symptomatic? NO [facility] Other 06/10/2020 2:42 PM EST 06/10/2020 5:47 PM EST Lisa Garcia MD BODY FLUIDS AND STOOLS ORDER CYNTHIA Final Result Performing Organization Address City/State/[facility] Co de Phone Number [facility] [address] [place] [address] [facility] [address] [place] [address] documented in this encounter Visit Diagnoses Diagnosis Exposure to SARS-associated coronavirus- Primary documented in this encounter Additional Health Concerns Infection Onset Date Last Indicated Resolved Time CoV-Exposed Comment:Recent close contact 06/10/2020 06/10/2020 06/24/2020 1:24 AM EST CoV-Risk 06/27/2024 06/27/2024 07/08/2024 1:22 AM EST documented as of this encounter Care Teams Director Staffing Relationship Specialty Start Date End Date Lisa Garcia MD [email or web address] PCP - General Family Medicine 06/24/18 documented as of this encounter Additional Source Comments The information contained in this document represents components of the legal health record. It is not the complete legal health record.[facility]
--- OUTSIDE RECORDS SUMMARY | 2025-04-05 19:17 | XMS_ITS | Clinical Summary ---
Author Organization [facility] Address [address] [address] Phone Care Team Providers Care Office Technology Professor Name Role Phone Lisa Garcia MD Primary [...] mg Cap Take by mouth daily. Active jhhctnpo-zir-di rrous gluconate (CENTRUM WITH IRON) 9 mg [...] Type Department Care Team Description 03/23/2025 Telephone [facility] Gastroenterology Clinic 10 [place], [place] [phone] Domenica Stringer Appointment from Last 3 Months [...] Description 05/30/2025 11:00 AM EST Office Visit [facility]enterology [facility] 10 [place] [address] Unknown, Unknown, Ally Elizondo PA-C [address] [address] [email or web address] Health Maintenance Due Date Last Done Comments [...] this topic Medical Devices Implanted Type Area Sales Contract Administrator Device Identifier Shelf Expiration Date Model / Serial / Lot Mesh Graft 4.5in Ventralight St Polypropylene Hernia Monofil Hydrogel Echo Ps Positioning System Repair [place] - [id number] Implanted:Qty: 1 on 07/10/2021 by Shanita Quevedo MD at [facility] N/A: Abdomen DAVOL 11/15/2022 [id number] / / [id number] Procedures Procedure Name Priority Date/Time Associated Diagnosis [...] clinician's provided indication for this examination in [facility]: Lung Cancer Screening - FORMER smoker, quit [...] clinician's provided indication for this examination in [facility]:Lung Cancer Screening - FORMER smoker, quit in [...] 50 Admit Type: Outpatient Gender: Male Room: [place] [address] Referring MD: Lisa Garcia Exam Type: Colonoscopy [...] monitored continuously. The Olympus adult variable colonoscope [id number] #[id number] was introduced through the anus and [...] 8:58 AM Procedure Code(s): --- Professional --- 37757, Colonoscopy, flexible; with removal of tumor(s), polyp(s), or other lesion(s) by snare technique --- Technical --- 46891, Colonoscopy, flexible; with removal of tumor(s), polyp(s), [...] perforation orabscess without bleeding CPT copyright 2016 [employer]. All rights reserved. The codes documented in this report are preliminary and upon automotive refinish technician reviewmay be revised to meet current compliance requirements. [address] [place] [address] [id number] Lisa Garcia MD GI PROCEDURE ORDERABLES Mavis l Result from Last 3 Months or Most Recently Relevant to Health Maintenance Insurance [facility] DIRECT [facility] DIRECT [facility] DIRECT [facility] DIRECT [facility] DIRECT [facility] PLANS [place] [address] DIRECT Advance Directives For more information, please contact: [phone] (9AM - 5PM Katherine/[facility], Wednesday-Wednesday) * Full Code (Latest Code Status on File) Date Activated Date Inactivated Comments 07/10/2021 6:19 AM Question Answer Comments Code Status Confirmed With: Patient Care Teams Office Technology Professor Relationship Specialty Start Date End Date Lisa Garcia MD [email or web address] PCP - General Family Medicine 06/24/18 Additional Source Comments The information contained in this document represents components of the legal health record. It is not the complete legal health record.[facility]
--- OUTSIDE RECORDS SUMMARY | 2025-04-05 19:17 | XMS_ITS | Encounter Summary ---
Author Organization [facility] Address [address] [place] [address] Phone Care Team Providers Care Lubricator Granulator Name Role Phone Lisa Garcia MD Primary Care Provider + [phone] Reason for Referral * - Closed Specialty Diagnoses / Procedures Referred By Contkathryn t Referred To Contact Diagnoses Cough Procedures CT Chest Lisa Garcia MD Phone: tel: fax: mailto:[email or web address] Referral ID Status Reason Start Date Expiration Date Visits Re quested Visits Authorized [id number] Closed 06/27/2018 06/27/2019 1 1 Encounter Details Date Type Department Care Team (Late Contact Info) Description 06/15/2018 Ancillary Orders Virtual Department [address] [place] [address] Lisa Garcia MD 70 [place] [address] [email or web address] Cough Social History Tobacco Use [...] AM EST Office Visit [facility] Gastroenterology Clinic 10 [place] [address] Unknown, Unknown, Ally Elizondo PA-C 10 [facility] [address] [place] [address] [email or web address] documented as of this encounter Results * [...] mGy POS - [id number] Lisa Garcia MD [facility] CHEST Final Result documented in this encounter Visit Diagnoses Diagnosis Cough Cough documented in this encounter Additional Health Concerns Infection Onset Date Last Indicated Resolved Time CoV-Exposed Comment:Recent close contact 06/10/2020 06/10/2020 06/24/2020 1:24 AM EST CoV-Risk 06/27/2024 06/27/2024 07/08/2024 1:22 AM EST documented as of this encounter Care Teams Lubricator Granulator Relationship Specialty Start Date End Date Lisa Garcia MD [email or web address] PCP - General Family Medicine 06/24/18 documented as of this encounter Additional Source Comments The information contained in this document represents components of the legal health record. It is not the complete legal health record.[facility]
--- OUTSIDE RECORDS SUMMARY | 2025-04-05 19:17 | XMS_ITS | Encounter Summary ---
Author Organization [facility] Address [address] [place] [address] Phone Care Team Providers Care Grade Foreman Name Role Phone Lisa Garcia MD Primary Care Provider [phone] Encounter Details Date Type Department Care Team (Late Contact Info) Description 07/10/2021 Procedure Pass [place] Admitting Dept - Virtual Department [address] [place] [address] Social History Tobacco Use Types Packs/Day Years Used Date Smoking Tobacco: Every Day Cigarettes 1 23.7 Started: 07/09/2001 Smokeless Tobacco: Never Comments:currently down to h prison pack Alcohol Use Standard Drinks/Week Comments Yes [...] Description 05/30/2025 11:00 AM EST Office Visit [facility] Gastroenterology Clinic 10 [place] [address] Unknown, Unknown, Ally Elizondo PA-C [address] [address] [email or web address] documented as of this encounter Visit Diagnoses Not on filedocumented in this encounter Additional Health Concerns Infection Onset Date Last Indicated Resolved Time CoV-Risk 06/27/2024 06/27/2024 07/08/2024 1:22 AM EST documented as of this encounter Care Teams Grade Foreman Relationship Specialty Start Date End Date Lisa Garcia MD [email or web address] PCP - General Family Medicine 06/24/18 documented as of this encounter Additional Source Comments The information contained in this document represents components of the legal health record. It is not the complete legal health record.[facility]
[2025-04-13 15:08] VITALS: BMI 32.7
[2025-04-17 09:22] VITALS: BMI 33.3
[2025-04-17] MEDS: Lactated Ringers 1,000 ML 100 ML IVCONT (09:32)
[2025-04-17 09:40] VITALS: BP 130/86; PULSE 79; RESP 16; TEMP 36.5; O2SAT 98
[2025-04-17 09:40] LABS: Glucose, Whole Blood 163 mg/dL (60-115)
--- NOTE | 2025-04-17 09:40 | PC.NURSE ---
IV attempt and insertion completed by ru rivas rn.
--- NOTE | 2025-04-17 10:17 | P.HPSUR_ITS ---
Pre-Procedural Eval Section A - 24 Hr Update-Section A only Date of Service: 04/17/25 Section B - Complete if H&P > 30 days Chief Complaint: screening,fecal abnormalities Relevant Family History (Specify if Yes): Yes Relevant Social History: None Present Medications: see Short Stay Collaborative assessment Medical History: Significant History (Perirectal abscess Hemorrhoid Hyperglycemia Colon cancer screening Elevated fecal calprotectin) History of Previous Operations: Relevant previous surgery/procedure and date(s) (Hx of umbilical hernia repair History of surgical procedure on eye proper using laser) Allergies: Allergies Allergy/AdvReac Type Severity Reaction Status Date / Time shellfish derived (shellfish) Allergy Intermediate Unknown Verified 04/17/25 09:42 Review of Systems Sugical H&P ROS: Negative: Constitution, Cardiovascular, Respiratory, N eurological, Psychiatric, Hem-Onc, Allergic/Immunologic, Gastrointestinal, Genitourinary, Musculoskeletal, Integumentary, Endocrine and Eyes/Ears/Nose/Throat Exam Surgical H&P Exam: Normal: HEENT, Normal: Heart, Normal: Lungs, Normal: Extremities, Normal: Abdomen, Normal: Skin and Normal: Neurological Plan Diagnosis/Plan: Unchanged I have reviewed the history and physical and performed a pertinent physical examination on my patient. No changes have occurred unless specified. Time Spent With Patient Time: Total time managing care of this patient today ____ minutes.
--- NOTE | 2025-04-17 10:19 | HO.ANESPROP2 ---
Documented by User: Mellisa Pimentel NP 04/12/25 11:56 HPI - Anesthesia Eval Consult details Narrative: 54 yr old male for colonoscopy PMF Active Problems Active Problems: All Active Problems Perirectal abscess (Acute) Hemorrhoid (Acute) Hyperglycemia (Acute) Colon cancer screening (Acute) Elevated fecal calprotectin (Acute) Past Medical History Medical History BPH (benign prostatic hyperplasia) IBD (inflammatory bowel disease) Perirectal abscess Hemorrhoid Hyperglycemia Elevated fecal calprotectin Family History Family History (Updated 04/05/25 @ 08:54 by Susan Blanco) Brother Colitis Surgical History Surgical History H/O colonoscopy Hx of umbilical hernia repair History of surgical procedure on eye proper using laser Social History Social History (Updated 04/05/25 @ 08:52 by Susan Blanco) Household Members: Family Are you a primary neonatal intensive care unit nurse to a significant other at home: No Do you presently have visiting nurse or other home services: No Alcohol intake: current Alcohol intake frequency: a few times a week Patient Tobacco Use Status: Former Tobacco user Have you been hit, kicked, punched, or otherwise hurt by someone within the past year? If so, by whom?: No Are you DNR?: No Advance Directives: No Advance Directives Information Provided: Yes Meds Allergies Allergy/AdvReac Type Severity Reaction Status Date / Time shellfish derived (shellfish) Allergy Intermediate Unknown Verified 04/17/25 09:42 Home Medications ?Medication ?Instructions ?Recorded ?Confirmed ?Last Taken ?Type tamsulosin 0.4 mg capsule 0.4 mg PO DAILY 04/04/25 04/13/25 Unknown History albuterol sulfate 90 mcg/actuation 2 puff inhalation Q4H PRN 04/05/25 04/13/25 Unknown History aerosol inhaler Shortness Of Breath Or Wheezing glipizide 2.5 mg tablet, extended 2.5 mg PO DAILY 04/05/25 04/13/25 Unknown History release 24 hr multivitamin 1 tab PO QAM 04/05/25 04/13/25 Unknown History sildenafil 50 mg tablet (Viagra) 50 mg PO DAILY PRN Erectile 04/05/25 04/13/25 Unknown History Dysfunction Documented by User: Pamela Webster DO 04/17/25 10:20 PMFSH Past Medical History Medical History BPH (benign prostatic hyperplasia) IBD (inflammatory bowel disease) Perirectal abscess Hemorrhoid Hyperglycemia Elevated fecal calprotectin Family History Family History (Updated 04/05/25 @ 08:54 by Susan Blanco) Brother Colitis Family history of problems with anesthesia: No Surgical History Surgical History H/O colonoscopy Hx of umbilical hernia repair History of surgical procedure on eye proper using laser History of Problems with Anesthesia: No Social History Social History (Updated 04/05/25 @ 08:52 by Susan Blanco) Household Members: Family Are you a primary neonatal intensive care unit nurse to a significant other at home: No Do you presently have visiting nurse or other home services: No Alcohol intake: current Alcohol intake frequency: a few times a week Patient Tobacco Use Status: Former Tobacco user Have you been hit, kicked, punched, or otherwise hurt by someone within the past year? If so, by whom?: No Are you DNR?: No Advance Directives: No Advance Directives Information Provided: Yes Meds Allergies Allergy/AdvReac Type Severity Reaction Status Date / Time shellfish derived (shellfish) Allergy Intermediate Unknown Verified 04/17/25 09:42 Home Medications ?Medication ?Instructions ?Recorded ?Confirmed ?Last Taken ?Type tamsulosin 0.4 mg capsule 0.4 mg PO DAILY 04/04/25 04/13/25 Unknown History albuterol sulfate 90 mcg/actuation 2 puff inhalation Q4H PRN 04/05/25 04/13/25 Unknown History aerosol inhaler Shortness Of Breath Or Wheezing glipizide 2.5 mg tablet, extended 2.5 mg PO DAILY 04/05/25 04/13/25 Unknown History release 24 hr multivitamin 1 tab PO QAM 04/05/25 04/13/25 Unknown History sildenafil 50 mg tablet (Viagra) 50 mg PO DAILY PRN Erectile 04/05/25 04/13/25 Unknown History Dysfunction Exam Exam Date and Time: 04/17/25 1020 Height,Weight and Vital Signs: Height 5 ft 10 in Weight 105.2 kg Vital Signs Temperature 97.7 F 04/17/25 09:40 Pulse Rate 79 04/17/25 09:40 Respiratory Rate 16 04/17/25 09:40 Blood Pressure 130/86 04/17/25 09:40 Pulse Oximetry 98 04/17/25 09:40 Oxygen Delivery Method Room Air 04/17/25 09:40 Temperature 97.7 F 04/17/25 09:40 Pulse Rate 79 04/17/25 09:40 Respiratory Rate 16 04/17/25 09:40 Blood Pressure 130/86 04/17/25 09:40 Pulse Oximetry 98 04/17/25 09:40 Oxygen Delivery Method Room Air 04/17/25 09:40 Airway Mallampati Class: I TM Dist: <=3cm Neck ROM: Full Loose/Missing/Broken Teeth: No (patient denies any loose or broken teeth) Heart: S1S2 Lungs: CTAB Assessment and Plan Assessment Anesthesia Assessment: Anesthesia Plan Discussed and Chart Reviewed Final Anesthetic Review Family History of Problems with Anesthesia: No History of Problems with Anesthesia: No NPO: Yes ASA Class: II Final Preanesthetic Review: No Changes in Pt Med Stat, Meds/Allgs Chart Reviewed, Consent Obtained/Reviewed and Anes Risks/Benef Reviewed Patient Risk: Low Procedure Risk: Low Anesthetic Plan Anesthetic Plan: MAC: and Agree w/ Assess. and Plan Disposition: Standard PACU
--- NOTE | 2025-04-17 11:10 | HO.OPN-COLON ---
Colonoscopy Operative Note Operative Note Date of Service: 04/17/25 Narrative: Operative Information Procedure Description: EGD, Colonoscopy Indication: diarrhea Anesthesia: MAC FLEXIBLE TRANSORAL UPPER GASTROINTESTINAL ENDOSCOPY AND COLONOSCOPY PROCEDURE NOTE UPPER ENDOSCOPY Consent: Indications for the procedure and potential complications of bleeding, perforation, reaction to medications and missed diagnosis were discussed with the patient and informed consent was obtained. Instrument: Olympus GIF H 190 J mid size upper endoscope Monitoring: Vital signs and clinical assessment, continuous EKG monitoring, Pulse oximetry, Carbon Dioxide monitoring and blood pressure monitoring were done throughout the procedure. Procedure: The patient was placed in the left lateral decubitis position and pre-procedure medications were administered and a bite block was placed. The endoscope was inserted into the mouth and advanced under direct vision to the third part of duodenum. A careful inspection was made as the upper endoscope was withdrawn including a retroflexed examination of the proximal stomach; Findings and interventions are described below. Findings: Larynx:normal Esophagus: GE junction at 40 cm, diaphragm hiatus at 40 cm, milde sophagitis, bx taken at GEJ and distal esophagus Stomach: patchy erythena. Biopsies were obtained. Grade 2 flap valve on retroflexed examination of the cardia. Duodenum: Normal bulb and descending duodenum, bx taken Intervention: Biopsies as noted above, COLONOSCOPY Instrument: Olympus variable stiffness pediatric scope 190L Colonoscopy Monitoring: Vital signs and clinical assessment, continuous EKG monitoring, Pulse oximetry, Carbon Dioxide monitoring and blood pressure monitoring were done throughout the procedure. Colon withdrawal time was 14 minutes. Procedure: The patient was placed in the left lateral decubitis position and pre-procedure medications were administered. After a digital rectal examination of the ano-rectum, the video colonoscope was inserted into the rectum and advanced through the colon to the cecum/TI. The colonoscope was slowly withdrawn in a retrograde panoramic fashion and the colon mucosa was carefully examined including a retroflexed view of the rectum. Findings and interventions are described below. Procedure Difficulty:moderate Findings: Terminal Ileum-normal, bx taken Cecum:normal Ascending Colon: 10 mm sessile polyp removed with cold snare, random bx taken Transverse Colon -normal, random bx taken Descending Colon:normal, random bx taken Sigmoid Colon: up till 40 cm severe inflammation with edema, swelling and granularity, bx taken Rectum: Retroflexion with small internal hemorrhoids, grade I, bx taken due to inflammation and swelling Anorectum - normal Colon preparation: [place] Bowel Preparation Scale Right colon; 2 Transverse colon: 2 Left colon; 2 (0 = Unprepared colon segment with mucosa not seen due to solid stool that cannot be cleared. 1 = Portion of mucosa of the colon segment seen, but other areas of the colon segment not well seen due to staining, residual stool and/or opaque liquid. 2 = Minor amount of residual staining, small fragments of stool and/or opaque liquid, but mucosa of colon segment seen well. 3 = Entire mucosa of colon segment seen well with no residual staining, small fragments of stool or opaque liquid) Impression and Post Procedure Diagnosis: Endoscopy Findings: gastritis esophagitis Colonoscopy Findings: procto sigmoiditis colon polyp internal hemorrhoids Plan: Await Pathology results Repeat Colonoscopy in 2-3 years or earlier if clinically indicated High fiber diet leaflet avoid straining at stool, epsom salts and sitz bath, anusol supps or cream commence mesalamine enema and PO Above findings were reviewed with the patient and relevant handouts were provided if indicated.
[2025-04-17 11:18] VITALS: BP 131/83; PULSE 99; RESP 18; TEMP 36.1; O2SAT 98
[2025-04-17 11:33] VITALS: BP 119/80; PULSE 77; RESP 18; TEMP 36.7; O2SAT 99
[2025-04-17 12:24] LABS: CDiff Gene PCR NEGATIVE (Negative)
== END 2025-04-17 12:07 | disposition home or self-care (01) ==
PROVIDERS: PCP Registered Nurse; Visit Provider Internal Medicine Gastroenterology
DX: Z12.11 Encounter for screening for malignant neoplasm of colon (principal); R19.5 Other fecal abnormalities; K20.90 Esophagitis, unspecified without bleeding; K64.8 Other hemorrhoids; K29.70 Gastritis, unspecified, without bleeding; K52.9 Noninfective gastroenteritis and colitis, unspecified; D12.2 Benign neoplasm of ascending colon
CPT/HCPCS: 45380; 45385; 43239; 82947; 83631; 87493; 88305; 88313; 88342; J2003; J2704

== ENCOUNTER → 2025-04-17 08:48 | Outpatient (BNV) | payer OTHER, SELFPAY | PROVIDERS: PCP Registered Nurse; Visit Provider Internal Medicine Gastroenterology | DX: R10.9 Unspecified abdominal pain (principal); K20.90 Esophagitis, unspecified without bleeding; K29.70 Gastritis, unspecified, without bleeding; K52.9 Noninfective gastroenteritis and colitis, unspecified; K63.5 Polyp of colon; K51.30 Ulcerative (chronic) rectosigmoiditis without complications; K64.0 First degree hemorrhoids | CPT/HCPCS: 43239; 45380; 45385 ==

== ENCOUNTER 2025-04-20 09:51 | Outpatient (AMB) | payer OTHER, SELFPAY ==
--- NOTE | 2025-04-20 09:52 | MHC.OFFVIS ---
Vital Signs 04/20/25 09:55 Height 5 ft 10 in Weight 231 lb BMI 33.1 BP 127/74 Blood Pressure Location Lt brachial Position Sitting Pulse 94 Intake Visit Reasons: f/u colo Intake Note: Patient follow up for Elevated fecal calprotectin, lab and Colonoscopy results. Patient cc: reports no complaints at this time. Wire Fence Erector Required: No Accompanied by: Self / Same As Patient Allergies shellfish derived (shellfish) Allergy (Intermediate, Verified 04/20/25 09:57) Unknown HPI HPI f/u colo: Details: Patient is a 54-year-old male with PMH of obesity, hyperlipidemia, essential tremors. Referred by PCP for further evaluation of irritable bowel disease. F/u after recent colonoscopy confirming UC (predominantly rectosigmoid). Discussion of pathology findings, current symptom status, and medication management. Additional concerns regarding hemorrhoids/skin tags and dietary management in context of hyperglycemia. Pt reports variable BMs with some transient normalization following colonoscopy, followed by return to baseline pattern?looser stools and intermittent blood per rectum, though with recent slight improvement in both stool form and blood amount. Mild, subjective improvement in overall rectal symptoms. Denies new major GI symptoms. Tolerating PO mesalamine and rectal enema (notes inconvenience with enema dosed to travel/work, but compliant). No recent hospitalizations or flares requiring escalation. Internal hemorrhoids remain symptomatic (pain, discomfort, difficulty with hygiene); has previously trialed suppositories and topical OTCs with limited benefit and possible exacerbation of GI symptoms. Discussed maintenance of supportive GI and hemorrhoid care. Reports newly noted elevated BGs and awaiting F/U with PCP for DM workup (A1c pending). No acute complications reported. [facility] Medical History (Updated 04/20/25 @ 15:05 by Oneyda Henriquez CNP) Tubular adenoma of colon Internal hemorrhoid Proctosigmoiditis BPH (benign prostatic hyperplasia) IBD (inflammatory bowel disease) Perirectal abscess Hemorrhoid Hyperglycemia Elevated fecal calprotectin Surgical History H/O colonoscopy Hx of umbilical hernia repair History of surgical procedure on eye proper using laser Family History Brother Colitis Social History Household Members: Family Are you a primary career services representative to a significant other at home: No Do you presently have visiting nurse or other home services: No Alcohol intake: current Alcohol intake frequency: a few times a week Patient Tobacco Use Status: Former Tobacco user Review of Systems Const Reports as per HPI ENT Reports as per HPI Card Reports as per HPI Resp Reports as per HPI GI Reports as per HPI Reports as per HPI Physical Exam Vital Signs: Last Vital Signs Pulse 94 04/20/25 09:55 BP 127/74 04/20/25 09:55 BMI result Body Mass Index 33.1 Const General: healthy appearing, no acute distress and well developed Nutritional Appearance: average body habitus Orientation/consciousness: patient oriented x3 HEENT Head: Yes normal to inspection, Yes normocephalic and Yes atraumatic Face and sinus: Yes normal facial exam Eyes General: appearance normal, both eyes and all related structures Neck Neck: Yes normal visual inspection Resp Effort & Inspection: normal respiratory effort, able to speak in complete sentences, no tracheal deviation and symmetric chest movement Cardio Jugular venous distension: no JVD GI Auscultation: normal bowel sounds Neuro General: patient oriented x3 Gait exam (Neuro): Normal gait present Psych Appearance: grossly normal Mental Status: mental status grossly normal Speech and movement: Normal speech and movement present Affect: normal affect Attitude: cooperative Thought process: Normal thought process present Thought content: Normal thought content present Insight: Good insight present (Psych) Judgement: Good judgement present (Psych) Assessment & Plan Assessment & Plan (1) Proctosigmoiditis: Comment: -04/17/25 EGD-esophagitis, Mild gastritis -04/17/25 colonoscopy complete with adequate prep - Colon: 10 mm TA ( Ascending), proctosigmoiditis, internal hemorrhoids. Repeat Colonoscopy in 2-3 years Repeat Colonoscopy in 2-3 years or earlier if clinically indicated Code(s): K63.89 - Other specified diseases of intestine Category: Medical Plan: Partial response; improvement in rectal bleeding and stool consistency. Intermittent loose BMs persist. Gradual response to mesalamine; goal is maintenance and eventual de-escalation of MT enema (as tolerated by symptoms/travel constraints). Add?l Testing: - Repeat stool inflammatory markers (e.g., calprotectin/fecal lactoferrin) in 3 mos to assess mucosal inflammation. Medications: - Continue PO mesalamine as prescribed (dose/freq per prior regimen). - Maintain MT mesalamine for induction; trial de-escalation if symptom-free (goal: PO maintenance if possible for QOL/travel). Lifestyle: - Maintain individualized, high-fiber diet as tolerated, considering glycemic impact (emphasize fruit, veg, legumes, nuts/seeds; trial/error with fruits for glycemic tolerance). - Provide tailored dietary handout. - Hydration; avoid NSAIDs; reinforce vax (flu, pneumonia, shingles). Referrals: None indicated at this time. F/U: Reassess in 4 mos or earlier prn flare, w/ review of stool markers and clinical response. (2) Internal hemorrhoid: Code(s): K64.8 - Other hemorrhoids Category: Medical Plan: Topicals provide minimal relief; previous suppository use exacerbated GI sx; pt requests prescription ointment w/ applicator (insurance-dependent). Add?l Testing: None indicated. Medications: - Rx topical (Proctofoam) up to 5x/d as needed; monitor for local irritation or lack of efficacy. Lifestyle: - Enforce fiber, sitz baths, limit straining, avoid prolonged sitting, careful with heavy lifting. - Skin hygiene education. Referrals: - Gen surg for hemorrhoid/skin tag excision?option if increasingly symptomatic, though deferred by pt at this time. F/U: Monitor symptoms; readdress surgical option as needed. (3) Hyperglycemia: Comment: taking glipizide Code(s): R73.9 - Hyperglycemia, unspecified Category: Medical Plan: Elevated BGs detected, A1c pending w/ PCP. Pt's preferred food selection for UC may conflict w/ DM meal planning; pt engaged in self-managing dietary trial/error. Add?l Testing: None from GI perspective; PCP to manage labs/A1c/meds. Medications: None at this time. Lifestyle: - Continue individualized fiber optimization. - Monitor BG responses to specific foods. Referrals: None from GI. F/U: Communicate abnormal DM labs to GI if affecting dietary plan or med risks. (4) Tubular adenoma of colon: Code(s): D12.6 - Benign neoplasm of colon, unspecified Category: Medical Plan: Large, precancerous colon polyp removed; surveillance indicated. Rationale: Increased risk for recurrence, standard of care per guidelines. Add?l Testing: Repeat colonoscopy in 2-3 yrs; reminder documented and pt instructed to calendar. Medications: N/A. Lifestyle: Reinforce overall health/preventive screenings/vax. Referrals: None required. F/U: Standard surveillance interval unless symptoms change. Plan Follow-up 4 months or sooner as needed Time: I spent a total of 30 minutes on the date of encounter which includes: Preparing to see the patient (reviewed previous documentation, test results and medical history) Performing a medically appropriate exam and/or evaluation Ordering medications, tests, and procedures Documenting clinical information in the health record Orders: Orders Calprotectin, Fecal 3 Months K63.89 - Other specified diseases of intestine C Reactive Protein 3 Months K63.89 - Other specified diseases of intestine Medications: New hydrocortisone-pramoxine 1-1 % (Proctofoam HC) Apply to anal area, as needed, up to 5 times daily. 1 appl MT QID PRN 10 grams 0RF hemorrhoids Coding Level of Care Code Established Pt Est Pt Level 3 (02184) Patient Type Established Diagnoses Proctosigmoiditis K63.89 Internal hemorrhoid K64.8 Hyperglycemia R73.9 Tubular adenoma of colon D12.6
[2025-04-20 09:55] VITALS: BP 127/74; PULSE 94; BMI 33.1
--- OUTSIDE RECORDS SUMMARY | 2025-04-20 11:03 | XMS_ITS | Encounter Summary ---
Author Organization [facility] Address [address] [place] [address] Phone Care Team Providers Care Professor Of Art Name Role Phone Lisa Garcia MD Primary Care Provider [phone] Encounter Details Date Type Department Care Team (Late Contact Info) Description 10/14/2023 Procedure Pass [facility], Ct Scan - [address] [address] Social History Tobacco Use Types Packs/Day Years Used Date Smoking Tobacco: Every Day Cigarettes 1 23.8 Started: 07/09/2001 Smokeless Tobacco: Never Comments:currently down to h correction pack Alcohol Use Standard Drinks/Week Comments Yes [...] Description 05/30/2025 11:00 AM EST Office Visit [facility] [address] [place] [address] Unknown, Unknown, Ally Elizondo PA-C [address] [place] [phone] [email or web address] documented as of this encounter Visit Diagnoses Not on filedocumented in this encounter Additional Health Concerns Infection Onset Date Last Indicated Resolved Time CoV-Risk 06/27/2024 06/27/2024 07/08/2024 1:22 AM EST documented as of this encounter Care Teams Professor Of Art Relationship Specialty Start Date End Date Lisa Garcia MD PCP - General Family Medicine 06/24/18 documented as of this encounter Additional Source Comments The information contained in this document represents components of the legal health record. It is not the complete legal health record.[facility]
--- OUTSIDE RECORDS SUMMARY | 2025-04-20 11:03 | XMS_ITS | Encounter Summary ---
Author Organization [facility] Address [address] [place] [phone] Phone Care Team Providers Care Pattern Carrier Name Role Phone Lisa Garcia MD Primary Care Provider [phone] Encounter Details Date Type Department Care Team (Latest Contact Info) Description 06/10/2020 Transcribe Orders Virtual Department [address] [place] [address] Lisa Garcia MD [address] [place] [address] [email or web address] Exposure to SARS-associated coronavirus (Primary Dx) [...] Description 05/30/2025 11:00 AM EST Office Visit [facility] [address] [place] [address] Unknown, Unknown, Ally Elizondo PA-C [address] [phone] documented as of this encounter Results * COVID-19 PCR Order (06/10/2020 2:42 PM EST) COVID Testing Status Specimen received in analyzing lab. [facility] Symptomatic? NO [facility] Other 06/10/2020 2:42 PM EST 06/10/2020 5:47 PM EST Lisa Garcia MD BODY FLUIDS AND STOOLS ORDER CYNTHIA Final Result Performing Organization Address City/State/[facility] Co de Phone Number [facility] [address] [place] [address] [facility] [address] [place] [id number] documented in this encounter Visit Diagnoses Diagnosis Exposure to SARS-associated coronavirus- Primary documented in this encounter Additional Health Concerns Infection Onset Date Last Indicated Resolved Time CoV-Exposed Comment:Recent close contact 06/10/2020 06/10/2020 06/24/2020 1:24 AM EST CoV-Risk 06/27/2024 06/27/2024 07/08/2024 1:22 AM EST documented as of this encounter Care Teams Pattern Carrier Relationship Specialty Start Date End Date Lisa Garcia MD [email or web address] PCP - General Family Medicine 06/24/18 documented as of this encounter Additional Source Comments The information contained in this document represents components of the legal health record. It is not the complete legal health record.[facility]
--- OUTSIDE RECORDS SUMMARY | 2025-04-20 11:03 | XMS_ITS | Encounter Summary ---
Author Organization [facility] Address [address] [place] [address] Phone Care Team Providers Care Accounts Receivable Assistant Name Role Phone Lisa Garcia MD Primary Care Provider [phone] Encounter Details Date Type Department Care Team (Late st Contact Info) Description 08/02/2018 Procedure Pass [facility] Endoscopy Admitting Dept Virtual Department [address] [place] [phone] Social History Tobacco Use Types Packs/Day Years [...] Description 05/30/2025 11:00 AM EST Office Visit [facility] [address] [place] [phone] Unknown, Unknown, Ally Elizondo PA-C [address] [place] [phone] [email or web address] documented as of this encounter Visit Diagnoses Not on filedocumented in this encounter Additional Health Concerns Infection Onset Date Last Indicated Resolved Time CoV-Exposed Comment:Recent close contact 06/10/2020 06/10/2020 06/24/2020 1:24 AM EST CoV-Risk 06/27/2024 06/27/2024 07/08/2024 1:22 AM EST documented as of this encounter Care Teams Accounts Receivable Assistant Relationship Specialty Start Date End Date Lisa Garcia MD [email or web address] PCP - General Family Medicine 06/24/18 documented as of this encounter Additional Source Comments The information contained in this document represents components of the legal health record. It is not the complete legal health record.[facility]
--- OUTSIDE RECORDS SUMMARY | 2025-04-20 11:03 | XMS_ITS | Encounter Summary ---
Author Organization [facility] Address [address] [address] Phone Care Team Providers Care Motor Winder Name Role Phone Lisa Garcia MD Primary Care Provider + [phone] Reason for Referral * MRI/CAT Scan - Closed Specialty Diagnoses / Procedures Referred By Contac t Referred To Contact Radiology Diagnoses Former smoker Procedures CT Chest Lung Cancer Screening Initial Or Annual Natty Gil MD Phone: tel: fax: mailto:[email or web address] Referral ID Status Reason Start Date Expiration Date Visits Re quested Visits Authorized [id number] Closed 02/25/2024 05/25/2024 1 1 Encounter Details Date Type Department Care Team (Latest Contact Info) Description 10/14/2023 Transcribe Orders Virtual Department 30 [place] [address] Natty Gil MD [address] [place] [address] [email or web address] Former smoker (Primary Dx) Social History [...] Description 05/30/2025 11:00 AM EST Office Visit [facility] 10 [place] [address] Unknown, Unknown, Ally Elizondo PA-C [address] [address] documented as of this encounter Results * [...] clinician's provided indication for this examination in [facility]:Lung Cancer Screening - FORMER smoker, quit [...] documented as of this encounter Care Teams Motor Winder Relationship Specialty Start Date End Date Lisa Garcia MD [email or web address] PCP - General Family Medicine 06/24/18 documented as of this encounter Additional Source Comments The information contained in this document represents components of the legal health record. It is not the complete legal health record.[facility]
--- OUTSIDE RECORDS SUMMARY | 2025-04-20 11:04 | XMS_ITS | Clinical Summary ---
Author Organization [facility] Address [address] [address] Phone Care Team Providers Care Item Processor Name Role Phone Lisa Garcia MD Primary [...] mg Cap Take by mouth daily. Active rcohkpqt-ler-ov rrous gluconate (CENTRUM WITH IRON) 9 mg [...] Type Department Care Team Description 03/23/2025 Telephone [facility] 10 [place], [place] [phone] Domenica Stringer Appointment from Last 3 Months [...] Description 05/30/2025 11:00 AM EST Office Visit [facility] 10 [place] [address] Unknown, Unknown, Ally Elizondo PA-C [address] [address] [email or web address] Health Maintenance Due Date Last Done Comments [...] this topic Medical Devices Implanted Type [facility] Worker Device Identifier Shelf Expiration Date Model / Serial / Lot Mesh Graft 4.5in Ventralight St Polypropylene Hernia Monofil Hydrogel Echo Ps Positioning System Repair [place] - [id number] Implanted:Qty: 1 on 07/10/2021 by Shanita Quevedo MD at [facility] N/A: Abdomen DAVOL 11/15/2022 [id number] / / [id number] Procedures Procedure Name Priority Date/Time Associated Diagnosis [...] clinician's provided indication for this examination in [facility]: Lung Cancer Screening - FORMER smoker, quit [...] clinician's provided indication for this examination in [facility]:Lung Cancer Screening - FORMER smoker, quit in [...] 48 Admit Type: Outpatient Gender: Male Room: [place] [address] Referring MD: Lisa Garcia Exam Type: Colonoscopy [...] monitored continuously. The Olympus adult variable colonoscope [id number] #[id number] was introduced through the anus and [...] 8:58 AM Procedure Code(s): --- Professional --- 38804, Colonoscopy, flexible; with removal of tumor(s), polyp(s), or other lesion(s) by snare technique --- Technical --- 25776, Colonoscopy, flexible; with removal of tumor(s), polyp(s), [...] perforation orabscess without bleeding CPT copyright 2016 [employer]. All rights reserved. The codes documented in this report are preliminary and upon principal software architect reviewmay be revised to meet current compliance requirements. [address] [place] [id number] Lisa Garcia MD GI PROCEDURE ORDERABLES Mavis l Result from Last 3 Months or Most Recently Relevant to Health Maintenance Insurance [facility] DIRECT [facility] DIRECT [facility] DIRECT [facility] DIRECT [facility] [place] [address] [place] [address] DIRECT Advance Directives For more information, please contact: [phone] (9AM - 5PM Katherine/[facility], Wednesday-Wednesday) * Full Code (Latest Code Status on File) Date Activated Date Inactivated Comments 07/10/2021 6:19 AM Question Answer Comments Code Status Confirmed With: Patient Care Teams Item Processor Relationship Specialty Start Date End Date Lisa Garcia MD [email or web address] PCP - General Family Medicine 06/24/18 Additional Source Comments The information contained in this document represents components of the legal health record. It is not the complete legal health record.[facility]
--- OUTSIDE RECORDS SUMMARY | 2025-04-20 11:04 | XMS_ITS | Encounter Summary ---
Author Organization [facility] Address [address] [place] [address] Phone Care Team Providers Care Personnel Associate Name Role Phone Lisa Garcia MD Primary Care Provider + [phone] Reason for Referral * - Closed Specialty Diagnoses / Procedures Referred By Contkathryn t Referred To Contact Diagnoses Cough Procedures CT Chest Lisa Garcia MD Phone: tel: fax: mailto:[email or web address] Referral ID Status Reason Start Date Expiration Date Visits Re quested Visits Authorized [id number] Closed 06/27/2018 06/27/2019 1 1 Encounter Details Date Type Department Care Team (Late Contact Info) Description 06/15/2018 Ancillary Orders Virtual Department [address] [place] [phone] Lisa Garcia MD 70 [place] [address] [email or web address] Cough Social History Tobacco Use Types Packs/Day [...] Description 05/30/2025 11:00 AM EST Office Visit [facility] 10 [place] [address] Unknown, Unknown, Ally Elizondo PA-C [address] [facility] [address] [place] [address] [email or web address] documented as of this encounter Results * [...] mGy POS - [id number] Lisa Garcia MD [facility] CHEST Final Result documented in this encounter Visit Diagnoses Diagnosis Cough Cough documented in this encounter Additional Health Concerns Infection Onset Date Last Indicated Resolved Time CoV-Exposed Comment:Recent close contact 06/10/2020 06/10/2020 06/24/2020 1:24 AM EST CoV-Risk 06/27/2024 06/27/2024 07/08/2024 1:22 AM EST documented as of this encounter Care Teams Personnel Associate Relationship Specialty Start Date End Date Lisa Garcia MD [email or web address] PCP - General Family Medicine 06/24/18 documented as of this encounter Additional Source Comments The information contained in this document represents components of the legal health record. It is not the complete legal health record.[facility]
--- OUTSIDE RECORDS SUMMARY | 2025-04-20 11:04 | XMS_ITS | Encounter Summary ---
Author Organization [facility] Address [address] [place] [address] Phone Care Team Providers Care Nicker And Breaker Name Role Phone Lisa Garcia MD Primary Care Provider [phone] Encounter Details Date Type Department Care Team (Late Contact Info) Description 07/10/2021 Procedure Pass OR Admitting Dept - Virtual Department [address] [place] [address] Social History Tobacco Use Types Packs/Day Years Used Date Smoking Tobacco: Every Day Cigarettes 1 23.8 Started: 07/09/2001 Smokeless Tobacco: Never Comments:currently down to h care home pack Alcohol Use Standard Drinks/Week Comments Yes [...] Description 05/30/2025 11:00 AM EST Office Visit [facility]astro[facility] 10 [place] [address] Unknown, Unknown, Ally Elizondo PA-C [address] [address] [email or web address] documented as of this encounter Visit Diagnoses Not on filedocumented in this encounter Additional Health Concerns Infection Onset Date Last Indicated Resolved Time CoV-Risk 06/27/2024 06/27/2024 07/08/2024 1:22 AM EST documented as of this encounter Care Teams Nicker And Breaker Relationship Specialty Start Date End Date Lisa Garcia MD [email or web address] PCP - General Family Medicine 06/24/18 documented as of this encounter Additional Source Comments The information contained in this document represents components of the legal health record. It is not the complete legal health record.[facility]
== END 2025-04-20 10:28 | disposition home or self-care (01) ==
LOC: HO.HGI 09:52
PROVIDERS: PCP Registered Nurse; Visit Provider Nurse Practitioner Family
DX: K63.89 Other specified diseases of intestine (principal); K64.8 Other hemorrhoids; R73.9 Hyperglycemia, unspecified; D12.6 Benign neoplasm of colon, unspecified
CPT/HCPCS: 99213

== ENCOUNTER → 2025-04-20 09:51 | Outpatient (BNVA) | payer OTHER, SELFPAY | PROVIDERS: PCP Registered Nurse; Visit Provider Nurse Practitioner Family | DX: K63.89 Other specified diseases of intestine (principal); K64.8 Other hemorrhoids; R73.9 Hyperglycemia, unspecified; D12.6 Benign neoplasm of colon, unspecified | CPT/HCPCS: 99212 ==

== ENCOUNTER 2025-05-30 12:36 | Outpatient (REF) | payer OTHER, SELFPAY ==
--- OUTSIDE RECORDS SUMMARY | 2025-05-30 19:21 | XMS_ITS | Clinical Summary ---
Author Organization [address] [facility] Address 175 [place] [address] Phone Care Team Providers Care Group Chief Operator Name Role Phone Napoleon Dave HARDIK Primary Care Provider Encounters Date Type Department Care Team Description 03/06/2025 Telephone Gastroenterology [facility] 175 [facility] [address] [place] [address] Roberto Curran MD from Last 3 Months Social History Tobacco Use Types Packs/Day Years Used Date Smoking Tobacco: Never Assessed Sex and Gender Information Value Date Recorded Sex Assigned at Not on file Legal Sex Male 3:24 PM EDT Gender Identity Not on file Sexual Orientation Not on file Plan of Treatment Upcoming Encounters Date Type Department Care Team ([facility] Contact Info) Description 08/01/2025 9:50 AM EST Consult Gastroenterology - 299 [facility] [address] [phone] Tatiana Pereira PA 299 [facility] [address] [place] [address] Health Maintenance Due Date Last Done Comments Colorectal Cancer Screening: Colonoscopy 1968 DTaP,Tdap,and Td Vaccines (1 - Tdap) 1987 Hepatitis B Vaccines (1 of 3 - 19+ 3-dose series) 1987 Pneumococcal Vaccine: 50+ Ye ars (1 of 1 - PCV) 2018 Zoster Vaccines (1 of 2) 2018 Depression Screening 06/21/2024 COVID-19 Vaccine (1 - 2024-2 6 season) 2025 Influenza Vaccine (#1) 2025 Cholesterol [...] patient's age to complete this topic [place] [address] [place] [address] PUBLIC PLANS Care Teams Group Chief Operator Relationship Specialty Start Date End Date Napoleon Dave FNP Joe Rodriguez [address] [phone] PCP - General Family Medicine 03/06/25
--- OUTSIDE RECORDS SUMMARY | 2025-05-30 19:21 | XMS_ITS | Encounter Summary ---
Author Organization [facility] Address 399 [facility] [address] [place] [address] Phone Care Team Providers Care Otr Flatbed Company Truck Driver Name Role Phone Lisa Garcia MD Primary Care Provider [phone] Encounter Details Date Type Department Care Team (Late st Contact Info) Description 10/14/2023 Procedure Pass [facility] Scan - [facility] 30 [place] [address] Social History Tobacco Use Types Packs/Day Years Used Date Smoking Tobacco: Every Day Cigarettes 1 23.9 Started: 07/09/2001 Smokeless Tobacco: Never Comments:currently down [...] as of this encounter Plan of Treatment Not on file documented as of this encounter Visit Diagnoses Not on filedocumented in this encounter Additional Health Concerns Infection Onset Date Last Indicated Resolved Time CoV-Risk 06/27/2024 06/27/2024 07/08/2024 1:22 AM EST documented as of this encounter Care Teams Otr Flatbed [employer] Truck Driver Relationship Specialty Start Date End Date Depiero, Lisa, MD [email or web address] PCP - General Family Medicine 06/24/18 documented as of this encounter Additional Source Comments The information contained in this document represents components of the legal health record. It is not the complete legal health record.[facility]
--- OUTSIDE RECORDS SUMMARY | 2025-05-30 19:21 | XMS_ITS | Encounter Summary ---
Author Organization [facility] Address [address] [address] Phone Care Team Providers Care Bracelet And Brooch Maker Name Role Phone Lisa Garcia MD Primary Care Provider + [phone] Reason for Referral * MRI/CAT Scan - Closed Specialty Diagnoses / Procedures Referred By Contac t Referred To Contact Radiology Diagnoses Former smoker Procedures CT Chest Lung Cancer Screening Initial Or Annual Natty Gil MD Phone: tel: fax: mailto:[email or web address] Referral ID Status Reason Start Date Expiration Date Visits Re quested Visits Authorized [id number] Closed 02/25/2024 05/25/2024 1 1 Encounter Details Date Type Department Care Team (Latest Contact Info) Description 10/14/2023 Transcribe Orders Virtual Department 30 [place] [address] Natty Gil MD [address] [place] [phone] .[employer] om Former smoker (Primary Dx) Social History [...] on file documented as of this encounter Results * [...] clinician's provided indication for this examination in [facility]: Lung Cancer Screening - FORMER [...] clinician's provided indication for this examination in [facility]:Lung Cancer Screening - FORMER smoker, [...] documented as of this encounter Care Teams Bracelet And Brooch Maker Relationship Specialty Start Date End Date Lisa Garcia MD [email or web address] PCP - General Family Medicine 06/24/18 documented as of this encounter Additional Source Comments The information contained in this document represents components of the legal health record. It is not the complete legal health record.[facility]
--- OUTSIDE RECORDS SUMMARY | 2025-05-30 19:21 | XMS_ITS | Encounter Summary ---
Author Organization [facility] Address [address] [address] Phone Care Team Providers Care Fly Winder Name Role Phone Lisa Garcia MD Primary Care Provider + [phone] Encounter Details Date Type Department Care Team (Late st Contact Info) Description 08/02/2018 Procedure Pass [facility] Endoscopy Admitting Dept Virtual Department 30 [place] [address] Social History Tobacco Use Types Packs/Day Years [...] documented as of this encounter Care Teams Fly Winder Relationship Specialty Start Date End Date Lisa Garcia MD PCP - General Family Medicine 06/24/18 documented as of this encounter Additional Source Comments The information contained in this document represents components of the legal health record. It is not the complete legal health record.[facility]
--- OUTSIDE RECORDS SUMMARY | 2025-05-30 19:22 | XMS_ITS | Encounter Summary ---
Author Organization [facility] Address 399 [facility] [address] [place] [address] Phone Care Team Providers Care Commission Broker Name Role Phone Lisa Garcia MD Primary Care Provider [phone] Encounter Details Date Type Department Care Team (Late st Contact Info) Description 07/10/2021 Procedure Pass OR Admitting Dept - Virtual Department 30 [place] [address] Social History Tobacco Use Types Packs/Day Years [...] documented as of this encounter Care Teams Commission Broker Relationship Specialty Start Date End Date Lisa Garcia MD PCP - General Family Medicine 06/24/18 documented as of this encounter Additional Source Comments The information contained in this document represents components of the legal health record. It is not the complete legal health record.[facility]
--- OUTSIDE RECORDS SUMMARY | 2025-05-30 19:22 | XMS_ITS | Clinical Summary ---
Author Organization [facility] Address [address] [address] Phone Care Team Providers Care High School Science Tutor Name Role Phone Lisa Garcia MD Primary [...] mg Cap Take by mouth daily. Active poidhgpg-hlc-nk rrous gluconate (CENTRUM WITH IRON) 9 mg [...] Type Department Care Team Description 03/23/2025 Telephone [facility] 10 [place], [place] [phone] Domenica Stringer Appointment from Last 3 Months [...] 06/27/2024 11:30 AM EST Plan of Treatment Health Maintenance Due Date Last Done Comments [...] INFLUENZA VACCINE (#1) 2025 04/20/2018 COVID-19 VACCINE (2024-2 6 season) 2025 06/08/2021, 09/04/2020 LUNG CANCER [...] this topic Medical Devices Implanted Type Area Dispute Resolution Analyst Device Identifier Shelf Expiration Date Model / Serial / Lot Mesh Graft 4.5in Ventralight St Polypropylene Hernia Monofil Hydrogel Echo Ps Positioning System Repair [place] - [id number] Implanted:Qty: 1 on 07/10/2021 by Shanita Quevedo MD at [facility] N/A: Abdomen DAVOL 11/15/2022 [id number] / / [id number] Procedures Procedure Name Priority Date/Time Associated Diagnosis Comments BUN Routine 05/28/2025 8:58 AM EST Elevated prostate specific antigen (PSA) CREATINE KINASE (CK) Routine 05/28/2025 8:58 AM EST Elevated prostate specific antigen (PSA) PSA (SCREENING) Routine 05/28/2025 8:58 AM EST Elevated prostate specific antigen (PSA) CT CHEST LUNG CANCER SCREENING INITIAL Routine 02/29/2024 2:25 PM EDT Former smoker ENDOSCOPY, COLON 08/02/2018 8:58 AM EST from Last 3 Months or Most Recently Relevant to Health Maintenance Results * Blood Urea Nitrogen (BUN) (05/28/2025 8:58 AM EST) BUN 11 6 - 23 mg/dL 05/28/2025 12:43 PM EST [facility] Blood (Blood) Venipuncture / Unknown 05/28/2025 8:58 AM EST 05/28/2025 10:15 AM EST us Bolivar Easton MD LAB BLOOD BKR ORDERABLES Final Result Performing Organization Address City/[facility]/ZIP Co de Phone Number [address] [address] * (ABNORMAL) Prostate Specific Antigen (PSA), Screen (05/28/2025 8:58 AM EST) Pathologist [facility] PSA Screen 7.63(H) <=4.00 ng/mL 05/28/2025 12:33 PM EST [facility] Blood (Blood) Venipuncture / Unknown 05/28/2025 8:58 AM EST 05/28/2025 10:16 AM EST us Bolivar [place] MD LAB BLOOD BKR ORDERABLES Final Result Performing Organization Address [facility]/ZIP Co de Phone Number [address] [address] * Creatine Kinase (CK) (05/28/2025 8:58 AM EST) Pathologist [facility] Creatine Kinase (CK) 113 39 - 308 U/L 05/28/2025 12:43 PM EST [facility] Blood (Blood) Venipuncture / Unknown 05/28/2025 8:58 AM EST 05/28/2025 10:15 AM EST us Bolivar [place] MD LAB BLOOD BKR ORDERABLES Final Result Performing Organization Address [facility] Co de Phone Number [address] [address] * CT CHEST LUNG CANCER SCREENING INITIAL [...] clinician's provided indication for this examination in [facility]: Lung Cancer Screening - FORMER smoker, [...] clinician's provided indication for this examination in [facility]:Lung Cancer Screening - FORMER smoker, quit [...] 08/02/2018 8:58 AM EST Patient Name: Milad Giordano Attending MD:: KEE ARAMBULA MD Procedure Date: 08/02/2018 8:58 AM Date of : 1970 Age: 48 Admit Type: Outpatient Gender: Male Room: [place] [address] Referring MD: Lisa Garcia Exam Type: Colonoscopy [...] monitored continuously. The Olympus adult variable colonoscope [id number] #6 was introduced through the anus and [...] 8:58 AM Procedure Code(s): --- Professional --- 96278, Colonoscopy, flexible; with removal of tumor(s), polyp(s), or other lesion(s) by snare technique --- Technical --- 59867, Colonoscopy, flexible; with removal of tumor(s), polyp(s), [...] perforation orabscess without bleeding CPT copyright 2016 [employer]. All rights reserved. The codes documented in this report are preliminary and upon atg architect reviewmay be revised to meet current compliance requirements. [address] [place] [address] Lisa Garcia MD GI PROCEDURE ORDERABLES Mavis l Result from Last 3 Months or Most Recently Relevant to Health Maintenance Insurance [facility] DIRECT [facility] DIRECT [facility] DIRECT [facility] [place] [address] [place] [address] [place] [address] [address] [place] [address] DIRECT Advance Directives For more information, please contact: [phone] (9AM - 5PM Katherine/[facility], Wednesday-Wednesday) * Full Code (Latest Code Status on File) Date Activated Date Inactivated Comments 07/10/2021 6:19 AM Question Answer Comments Code Status Confirmed With: Patient Care Teams High School Science Tutor Relationship Specialty Start Date End Date Lisa Garcia MD [email or web address] PCP - General Family Medicine 06/24/18 Additional Source Comments The information contained in this document represents components of the legal health record. It is not the complete legal health record.[facility]
--- OUTSIDE RECORDS SUMMARY | 2025-05-30 19:22 | XMS_ITS | Encounter Summary ---
Author Organization [facility] Address [address] [place] [address] Phone Care Team Providers Care Airplane Pilot Commercial Name Role Phone Lisa Gacria MD Primary Care Provider + [phone] Encounter Details Date Type Department Care Team (Latest Contact Info) Description 06/10/2020 Transcribe Orders Virtual Department [address] [place] [address] Lisa Garcia MD [address] [place] [phone] [email or web address] Exposure to SARS-associated coronavirus (Primary Dx) [...] Testing Status Specimen received in analyzing lab. [facility] Symptomatic? NO [facility] Other 06/10/2020 2:42 PM EST 06/10/2020 5:47 PM EST us Lisa Garcia MD LAB GENERAL ORDERABLES Final Result [facility] [address] [place] [address] [facility] [address] [place] [address] documented in this encounter Visit Diagnoses Diagnosis Exposure to SARS-associated coronavirus- Primary documented in this encounter Additional Health Concerns Infection Onset Date Last Indicated Resolved Time CoV-Exposed Comment:Recent close contact 06/10/2020 06/10/2020 06/24/2020 1:24 AM EST CoV-Risk 06/27/2024 06/27/2024 07/08/2024 1:22 AM EST documented as of this encounter Care Teams Airplane Pilot Commercial Relationship Specialty Start Date End Date Lisa Garcia MD [email or web address] PCP - General Family Medicine 06/24/18 documented as of this encounter Additional Source Comments The information contained in this document represents components of the legal health record. It is not the complete legal health record.[facility]
--- OUTSIDE RECORDS SUMMARY | 2025-05-30 19:23 | XMS_ITS | Encounter Summary ---
Author Organization [facility] Address [address] [place] [address] Phone Care Team Providers Care Fuel Efficient Aircraft Designer Name Role Phone Lisa Garcia MD Primary Care Provider + [phone] Reason for Referral * - Closed Specialty Diagnoses / Procedures Referred By Contkathryn t Referred To Contact Diagnoses Cough Procedures CT Chest Lisa Garcia MD Phone: tel: fax: [email or web address] Referral ID Status Reason Start Date Expiration Date Visits Re quested Visits Authorized [id number] Closed 06/27/2018 06/27/2019 1 1 Encounter Details Date Type Department Care Team (Late st Contact Info) Description 06/15/2018 Ancillary Orders Virtual Department [address] [place] [phone] Lisa Garcia MD [address] [place] [phone] [email or web address] Cough Social History Tobacco Use Types Packs/Day [...] mGy POS - [id number] Lisa Garcia MD IMG CT CHEST Final Result documented in this encounter Visit Diagnoses Diagnosis Cough Cough documented in this encounter Additional Health Concerns Infection Onset Date Last Indicated Resolved Time CoV-Exposed Comment:Recent close contact 06/10/2020 06/10/2020 06/24/2020 1:24 AM EST CoV-Risk 06/27/2024 06/27/2024 07/08/2024 1:22 AM EST documented as of this encounter Care Teams Fuel Efficient Aircraft Designer Relationship Specialty Start Date End Date Lisa Garcia MD [email or web address] PCP - General Family Medicine 06/24/18 documented as of this encounter Additional Source Comments The information contained in this document represents components of the legal health record. It is not the complete legal health record.[facility]
== END 2025-05-30 12:37 ==
LOC: HO.LAB 12:36
PROVIDERS: Visit Provider Nurse Practitioner Family
DX: K63.89 Other specified diseases of intestine (principal)
CPT/HCPCS: 36415; 86140

== ENCOUNTER 2025-05-31 10:13 | Outpatient (REF) | payer OTHER, SELFPAY | END 2025-05-31 10:14 | LOC: HO.LNP 10:13 | PROVIDERS: Visit Provider Nurse Practitioner Family | DX: K63.89 Other specified diseases of intestine (principal) | CPT/HCPCS: 83993 ==

== ENCOUNTER 2025-06-15 15:12 | Outpatient (AMB) | payer OTHER, SELFPAY ==
--- NOTE | 2025-06-15 15:14 | MHC.OFFVIS ---
Intake Visit Reasons: NEW SYMPTOMS Intake Note: Patient telehealth follow up to discuss new symptoms. Head Control Clerk Required: No Allergies shellfish derived (shellfish) Allergy (Intermediate, Verified 06/15/25 15:13) Unknown HPI HPI NEW SYMPTOMS: Details: Patient is a 54-year-old male with PMH of obesity, hyperlipidemia, essential tremors. Video visit for flare of his ulcerative colitis, characterized by multiple episodes of diarrhea with bloody stools. He reports associated stomach pain that is manageable, but denies fever, nausea, or vomiting. His appetite is good and he is tolerating oral intake. In the past, he was treated with prednisone, which improved his symptoms but is recalled to have affected his glucose levels. He has been unable to use Proctofoam due to frequency of stool output. He is also prescribed mesalamine and taking the oral formulation daily. He restarted the enema formulation as discussed earlier this month without symptoms relief. Shares he took 30 mg of prednisone earlier today in hopes of symptom improvement. [facility] Medical History (Updated 06/15/25 @ 16:14 by Oneyda Henriquez CNP) Tubular adenoma of colon Internal hemorrhoid Proctosigmoiditis BPH (benign prostatic hyperplasia) IBD (inflammatory bowel disease) Perirectal abscess Hemorrhoid Hyperglycemia Elevated fecal calprotectin Surgical History H/O colonoscopy Hx of umbilical hernia repair History of surgical procedure on eye proper using laser Family History Brother Colitis Social History Household Members: Family Are you a primary lawn care specialist to a significant other at home: No Do you presently have visiting nurse or other home services: No Alcohol intake: current Alcohol intake frequency: a few times a week Patient Tobacco Use Status: Former Tobacco user Review of Systems Const Reports as per HPI ENT Reports as per HPI Card Reports as per HPI Resp Reports as per HPI GI Reports as per HPI Reports as per HPI Physical Exam Const General: healthy appearing, no acute distress and well developed Nutritional Appearance: average body habitus Orientation/consciousness: patient oriented x3 HEENT Head: Yes normal to inspection, Yes normocephalic and Yes atraumatic Face and sinus: Yes normal facial exam Eyes General: appearance normal, both eyes and all related structures Neck Neck: Yes normal visual inspection Resp Effort & Inspection: normal respiratory effort, able to speak in complete sentences, no tracheal deviation and symmetric chest movement Cardio Jugular venous distension: no JVD Neuro General: patient oriented x3 Gait exam (Neuro): Normal gait present Psych Appearance: grossly normal Mental Status: mental status grossly normal Speech and movement: Normal speech and movement present Affect: normal affect Attitude: cooperative Thought process: Normal thought process present Thought content: Normal thought content present Insight: Good insight present (Psych) Judgement: Good judgement present (Psych) Assessment & Plan Assessment & Plan (1) Proctosigmoiditis: Comment: -04/17/25 EGD-esophagitis, Mild gastritis -04/17/25 colonoscopy complete with adequate prep - Colon: 10 mm TA ( Ascending), proctosigmoiditis, internal hemorrhoids. Repeat Colonoscopy in 2-3 years or earlier if clinically indicated Code(s): K63.89 - Other specified diseases of intestine Category: Medical Plan: The patient is experiencing a flare of ulcerative colitis with diarrhea and bloody stools. - Given that he has no fever, has manageable pain, and is tolerating oral intake, hospitalization is not required at this time. - Start oral budesonide 9 mg once daily for 8 weeks to induce remission. This steroid is preferred over prednisone as it works primarily in the gut and is less likely to cause systemic side effects like hyperglycemia. - He is encouraged to continue his mesalamine. - Discussed long-term treatment with biologics, as it is likely he will need alternative therapy. - Humira (a subcutaneous self-injection) is a preferred option over Remicade (an IV infusion) as it appears to be covered by his insurance. - Plan for pre-screening prior to initiating biologics, to be completed over the next 8 weeks. - This includes lab tests to check for hepatitis serology and TB status, as biologics can impact the immune system. - Additional lab tests will be done to check for enzymes to determine appropriate dosing prior to starting anti-TNF therapy. - Recommend Shingrix vaccine for shingles, as this is recommended for his age and is important before starting immunosuppressive therapy. Would also need annual influenza, covid19 vaccine and dermatology skin assessment. - ER/call back precautions reviewed -provider to check in via portal/phone in 2 weeks. Keep schedule f/u for 08/17/25 Plan Follow-up as above or sooner as needed Time: I spent a total of 45 minutes on the date of encounter which includes: Preparing to see the patient (reviewed previous documentation, test results and medical history) Performing a medically appropriate exam and/or evaluation Ordering medications, tests, and procedures Documenting clinical information in the health record Orders: Orders HIV Ab/Ag Today K63.89 - Other specified diseases of intestine Hepatitis A,B,C Profile Today K63.89 - Other specified diseases of intestine Hepatitis A IgG Today K63.89 - Other specified diseases of intestine Quantiferon TB Gold Plus 1 Today Z01.84 - Encounter for antibody response examination Prometheus TPMT Enzyme Today K63.89 - Other specified diseases of intestine Medications: New budesonide DR-ER Take one tablet daily for 8 weeks. 9 mg PO DAILY 56 ea 0RF 8 weeks adjuvant AS01B (PF)vial 1 of 2 (Shingrix Adjuvant Component (PF) intramuscular suspension) second IM injection 2-6 months after initial dose 0.5 mL IM ONCE 0.5 mL 1RF Coding Level of Care Code Established Pt Tele Est Pt Level 5 (48419) Patient Type Established Diagnoses Proctosigmoiditis K63.89
--- OUTSIDE RECORDS SUMMARY | 2025-06-15 15:14 | XMS_ITS | Encounter Summary ---
Author Organization [facility] Address [address] [place] [address] Phone Care Team Providers Care Stake Driver Name Role Phone Lisa Garcia MD Primary Care Provider + [phone] Encounter Details Date Type Department Care Team (Latest Contact Info) Description 06/10/2020 Transcribe Orders Virtual Department [address] [place] [phone] Lisa Garcia MD [address] [place] [address] [phone] [email or web address] Exposure to SARS-associated coronavirus (Primary [...] Testing Status Specimen received in analyzing lab. [facility] Symptomatic? NO [facility] Other 06/10/2020 2:42 PM EST 06/10/2020 5:47 PM EST us Lisa Garcia MD LAB GENERAL ORDERABLES Final Result [facility] [address] [place] [address] [facility] [address] [place] [address] documented in this encounter Visit Diagnoses Diagnosis Exposure to SARS-associated coronavirus- Primary documented in this encounter Additional Health Concerns Infection Onset Date Last Indicated Resolved Time CoV-Exposed Comment:Recent close contact 06/10/2020 06/10/2020 06/24/2020 1:24 AM EST CoV-Risk 06/27/2024 06/27/2024 07/08/2024 1:22 AM EST documented as of this encounter Care Teams Stake Driver Relationship Specialty Start Date End Date Lisa Gacria MD [email or web address] PCP - General Family Medicine 06/24/18 documented as of this encounter Additional Source Comments The information contained in this document represents components of the legal health record. It is not the complete legal health record.[facility]
--- OUTSIDE RECORDS SUMMARY | 2025-06-15 15:14 | XMS_ITS | Clinical Summary ---
Author Organization [facility] Address [address] [address] Phone Care Team Providers Care Jaw Skinner Name Role Phone Lisa Garcia MD Primary Care Provider [phone] Allergies Active Allergy Reactions Criticality Noted Date Comments Shellfish Containing Products 2021 Shrimp 06/27/2024 Medications budesonide-form oterol (SYMBICORT) 80-4.5 mcg/actuation inhaler Inhale 2 puffs into the lungs 2 (two) times a day. Active albuterol 90 mcg/actuation inhaler Inhale 2 puffs into the lungs every 6 (six) hours as needed for wheezing. Active tamsulosin (FLOMAX) 0.4 mg Cap Take by mouth daily. Active ysqyddsw-hgh-lf rrous gluconate (CENTRUM WITH IRON) 9 mg [...] Type Department Care Team Description 03/23/2025 Telephone [facility] [address] [place], [place] [id number] Domenica Stringer Appointment from Last 3 Months [...] this topic Medical Devices Implanted Type Area Last Remodeler Repairer Device Identifier Shelf Expiration Date Model / Serial / Lot Mesh Graft 4.5in Ventralight St Polypropylene Hernia Monofil Hydrogel Echo Ps Positioning System Repair Elem - [id number] Implanted:Qty: 1 on 07/10/2021 by Shanita Quevedo MD at [facility] N/A: Abdomen DAVOL 11/15/2022 [id number] / / [id number] Procedures Procedure Name Priority Date/Time Associated Diagnosis [...] - 23 mg/dL 05/28/2025 12:43 PM EST [facility] Blood (Blood) Venipuncture / Unknown 05/28/2025 8:58 AM EST 05/28/2025 10:15 AM EST us Bolivar Easton MD LAB BLOOD BKR ORDERABLES Final Result Performing Organization Address [facility]/ZIP Co de Phone Number [address] [address] * (ABNORMAL) Prostate Specific Antigen (PSA), Screen (05/28/2025 8:58 AM EST) Pathologist [facility] PSA Screen 7.63(H) <=4.00 ng/mL 05/28/2025 12:33 PM EST [facility] Blood (Blood) Venipuncture / Unknown 05/28/2025 8:58 AM EST 05/28/2025 10:16 AM EST us Bolivar Easton MD LAB BLOOD BKR ORDERABLES Final Result Performing Organization Address [facility]/ZIP Co de Phone Number [address] [address] * Creatine Kinase (CK) (05/28/2025 8:58 AM EST) Pathologist [facility] Creatine Kinase (CK) 113 39 - 308 U/L 05/28/2025 12:43 PM EST [facility] Blood (Blood) Venipuncture / Unknown 05/28/2025 8:58 AM EST 05/28/2025 10:15 AM EST us Bolivar Easton MD LAB BLOOD BKR ORDERABLES Final Result Performing Organization Address [facility] Co de Phone Number [address] [address] * CT CHEST LUNG CANCER SCREENING INITIAL [...] clinician's provided indication for this examination in [facility]: Lung Cancer Screening - FORMER [...] clinician's provided indication for this examination in [facility]:Lung Cancer Screening - FORMER smoker, [...] 50 Admit Type: Outpatient Gender: Male Room: [place] [address] Referring MD: Lisa Garcia Exam Type: Colonoscopy [...] monitored continuously. The Olympus adult variable colonoscope [id number] #[id number] was introduced through the anus and [...] 8:58 AM Procedure Code(s): --- Professional --- 44194, Colonoscopy, flexible; with removal of tumor(s), polyp(s), or other lesion(s) by snare technique --- Technical --- 91439, Colonoscopy, flexible; with removal of tumor(s), polyp(s), [...] perforation orabscess without bleeding CPT copyright 2016 [employer]. All rights reserved. The codes documented in this report are preliminary and upon medical coder reviewmay be revised to meet current compliance requirements. [address] [place] [address] Lisa Garcia MD GI PROCEDURE ORDERABLES Mavis l Result from Last 3 Months or Most Recently Relevant to Health Maintenance Insurance [facility] DIRECT [facility] DIRECT [facility] DIRECT [facility] DIRECT [facility] DIRECT [facility] [place] [address] [place] [address] [place] [address] [place] [address] DIRECT Advance Directives For more information, please contact: [phone] (9AM - 5PM [facility], Wednesday-Wednesday) * Full Code (Latest Code Status on File) Date Activated Date Inactivated Comments 07/10/2021 6:19 AM Question Answer Comments Code Status Confirmed With: Patient Care Teams Jaw Skinner Relationship Specialty Start Date End Date Lisa Garcia MD [email or web address] PCP - General Family Medicine 06/24/18 Additional Source Comments The information contained in this document represents components of the legal health record. It is not the complete legal health record.[facility]
--- OUTSIDE RECORDS SUMMARY | 2025-06-15 15:14 | XMS_ITS | Encounter Summary ---
Author Organization [facility] Address [address] [facility] [address] [place] [address] Phone Care Team Providers Care Promotional Representative Name Role Phone Lisa Garcia MD Primary Care Provider [phone] Encounter Details Date Type Department Care Team (Late st Contact Info) Description 10/14/2023 Procedure Pass [facility], Ct Scan - [facility] [address] [place] [address] Social History Tobacco Use Types Packs/Day Years [...] documented as of this encounter Care Teams Promotional Representative Relationship Specialty Start Date End Date Depiero, Lisa, MD [email or web address] PCP - General Family Medicine 06/24/18 documented as of this encounter Additional Source Comments The information contained in this document represents components of the legal health record. It is not the complete legal health record.[facility]
--- OUTSIDE RECORDS SUMMARY | 2025-06-15 15:14 | XMS_ITS | Encounter Summary ---
Author Organization [facility] Address [address] [address] Phone Care Team Providers Care Appellate Conferee Name Role Phone Lisa Garcia MD Primary Care Provider + [phone] Encounter Details Date Type Department Care Team (Late st Contact Info) Description 08/02/2018 Procedure Pass [facility] Endoscopy Admitting Dept Virtual Department [address] [place] [address] Social History Tobacco Use Types Packs/Day Years [...] documented as of this encounter Care Teams Appellate Conferee Relationship Specialty Start Date End Date Lisa Garcia MD PCP - General Family Medicine 06/24/18 documented as of this encounter Additional Source Comments The information contained in this document represents components of the legal health record. It is not the complete legal health record.[facility]
--- OUTSIDE RECORDS SUMMARY | 2025-06-15 15:14 | XMS_ITS | Encounter Summary ---
Author Organization [facility] Address [address] [facility] [address] [place] [address] Phone Care Team Providers Care Research Dietitian Name Role Phone Lisa Garcia MD Primary Care Provider [phone] Encounter Details Date Type Department Care Team (Late st Contact Info) Description 07/10/2021 Procedure Pass [place] Admitting Dept - Virtual Department [address] [place] [address] Social History Tobacco Use Types Packs/Day Years [...] documented as of this encounter Care Teams Research Dietitian Relationship Specialty Start Date End Date Lisa Garcia MD PCP - General Family Medicine 06/24/18 documented as of this encounter Additional Source Comments The information contained in this document represents components of the legal health record. It is not the complete legal health record.[facility]
--- OUTSIDE RECORDS SUMMARY | 2025-06-15 15:14 | XMS_ITS | Clinical Summary ---
Author Organization [address] [facility] Address [address] [place] [address] Phone Care Team Providers Care Head Custodian Name Role Phone Napoleon Dave HARDIK Primary Care Provider Social History Tobacco Use Types Packs/Day Years Used Date Smoking Tobacco: Never Assessed Sex and Gender Information Value Date Recorded Sex Assigned at Not on file Legal Sex Male 3:24 PM EDT Gender Identity Not on file Sexual Orientation Not on file Plan of Treatment Upcoming Encounters Date Type Department Care Team ([facility] Contact Info) Description 08/01/2025 9:50 AM EST Consult Gastroenterology - [address] [phone] Tatiana Pereira PA [address] [address] Health Maintenance Due Date Last Done Comments Colorectal Cancer Screening: Colonoscopy 1968 DTaP,Tdap,and Td Vaccines (1 - Tdap) 1987 Hepatitis B Vaccines (1 of 3 - 19+ 3-dose series) 1987 Pneumococcal Vaccine: 50+ Ye ars (1 of 1 - PCV) 2018 Zoster Vaccines (1 of 2) 2018 Depression Screening 06/21/2024 COVID-19 Vaccine ( - 2024-2 6 season) 2025 Influenza Vaccine [...] patient's age to complete this topic Insurance [facility] PL[facility] Care Teams Head Custodian Relationship Specialty Start Date End Date Napoleon Dave FNP [address] [place] [address] [address] [phone] [phone] PCP - General Family Medicine 03/06/25
--- OUTSIDE RECORDS SUMMARY | 2025-06-15 15:14 | XMS_ITS | Encounter Summary ---
Author Organization [facility] Address [address] [place] [address] Phone Care Team Providers Care Drag Out Worker Name Role Phone Lisa Garcia MD Primary Care Provider + [phone] Reason for Referral * - Closed Specialty Diagnoses / Procedures Referred By Contkathryn t Referred To Contact Diagnoses Cough Procedures CT Chest Lisa Garcia MD Phone: tel: fax: [email or web address] Referral ID Status Reason Start Date Expiration Date Visits Re quested Visits Authorized [id number] Closed 06/27/2018 06/27/2019 1 1 Encounter Details Date Type Department Care Team (Late st Contact Info) Description 06/15/2018 Ancillary Orders Virtual Department [address] [place] [address] Lisa Garcia MD [address] [place] [phone] [email or web address] Cough Social History Tobacco Use Types Packs/Day [...] documented as of this encounter Care Teams Drag Out Worker Relationship Specialty Start Date End Date Lisa Garcia MD [email or web address] PCP - General Family Medicine 06/24/18 documented as of this encounter Additional Source Comments The information contained in this document represents components of the legal health record. It is not the complete legal health record.[facility]
== END 2025-06-15 15:56 | disposition home or self-care (01) ==
LOC: HO.HGI 15:12
PROVIDERS: PCP Registered Nurse; Visit Provider Nurse Practitioner Family
DX: K63.89 Other specified diseases of intestine (principal)
CPT/HCPCS: 98007